=== PATIENT | male | born 1965 | race Caucasian/White ===

== ENCOUNTER 2017-05-10 18:51 | Inpatient (IN) | payer MEDICAID ==
[2017-05-10] MEDS ORDERED: ALBUTEROL SULFATE 0.083% NEB 2.5 MG/3 ML AMPUL NEB ONE (19:24)
--- NOTE | 2017-05-10 19:27 | ER Document Report ---
ED General - General Stated Complaint: SHORTNESS OF BREATH Time Seen by Provider: 05/10/17 19:19 Notes: Patient is a 52-year-old male with a past medical history of COPD, no baseline oxygen dependence, prior hospitalizations for COPD but no prior intubations or ICU admissions who presents with 3 days of progressively worsening shortness of breath became much worse this evening. Patient reports that he has been using his Spiriva as well as his albuterol inhalers without improvement of his symptoms. He does admit that he continues to smoke cigarettes. He has not seen his primary care doctor regarding today's concerns. He has not noted that anything seems to worsen his symptoms. He cannot recall the last time that his COPD was this severe. He denies any associated fever, chest pain, syncope, abdominal pain, vomiting or diarrhea. He does admit to ongoing feelings of severe shortness of breath at time of my initial assessment. TRAVEL OUTSIDE OF THE [place] IN LAST 30 DAYS: No COUNTRY TRAVELED TO/FROM: [place] - Related Data Allergies/Adverse Reactions: Cat/Feline Product Derivatives * [Cat/Feline Product Derivatives] Allergy ( Severe, Verified 05/10/17 19:43) Past Medical History - General Information source: Patient - Social History Smoking Status: Current Every Day Smoker Frequency of alcohol use: None Drug Abuse: None Lives with: Alone Family History: Reviewed & Not Pertinent - Past Medical History Cardiac Medical History: Reports: Hx Hypertension Denies: Hx Coronary Artery Disease, Hx Heart Attack Pulmonary Medical History: Reports: Hx Asthma, Hx Bronchitis, Hx COPD, Hx Pneumonia Denies: Hx Tuberculosis Neurological Medical History: Denies: Hx Cerebrovascular Accident, Hx Seizures Musculoskeltal Medical History: Reports Hx Arthritis Psychiatric Medical History: Reports: Hx Depression Traumatic Medical History: Reports: Hx Fractures - fingers, wrists, toes, arm Past Surgical History: Reports: Hx Bowel Surgery, Hx Oral Surgery. Denies: Hx Pacemaker - Immunizations Hx Diphtheria, Pertussis, Tetanus Vaccination: Yes - unknown Hx Pneumococcal Vaccination: 12/12/04 Review of Systems - Review of Systems Notes: Constitutional: Negative for fever. HENT: Negative for sore throat. Eyes: Negative for visual changes. Cardiovascular: Negative for chest pain. Respiratory: Positive for shortness of breath. Gastrointestinal: Negative for abdominal pain, vomiting or diarrhea. Genitourinary: Negative for dysuria. Musculoskeletal: Negative for back pain. Skin: Negative for rash. Neurological: Negative for headaches, weakness or numbness. 10 point ROS negative except as marked above and in HPI. Physical Exam - Vital signs Vitals: Pulse Ox 98 05/10/17 18:55 Interpretation: Tachycardic, Tachypneic Notes: PHYSICAL EXAMINATION: GENERAL: Appears in moderate distress, breathing between 40 and 50 times per minute on BiPAP HEAD: Atraumatic, normocephalic. EYES: Pupils equal round and reactive to light, extraocular movements intact, sclera anicteric, conjunctiva are normal. ENT: nares patent, oropharynx clear without exudates. Moderately dry mucous membranes. NECK: Normal range of motion, supple without lymphadenopathy LUNGS: Tight air movement in all lung bedoya. Prolonged expiratory phase with expiratory wheezing. Moderate respiratory distress with intercostal and supraclavicular retractions. HEART: Regular tachycardia without murmurs ABDOMEN: Soft, nontender, normoactive bowel sounds. No guarding, no rebound. No masses appreciated. EXTREMITIES: Normal range of motion, no pitting or edema. No cyanosis. NEUROLOGICAL: No focal neurological deficits. Moves all extremities spontaneously and on command. PSYCH: Normal mood, normal affect. SKIN: Warm, Dry, normal turgor, no rashes or lesions noted. Course - Re-evaluation Re-evalutation: 05/10/17 19:25 Patient presents by EMS in respiratory distress secondary to a COPD exacerbation. Patient is necessitating BiPAP at time of presentation. He has already received 125 mg Solu-Medrol, 2 g of magnesium, and 3 duo nebulizers prior to assessment. HI some evaluation the patient remains tachypneic with respiratory rates between 35 and 40 breaths per minute although he is able to speak in approximately 5-6 word sentences and reports that he feels dramatically improved on BiPAP and after the interventions provided by EMS. Chest x-ray and labs have been ordered. I do not see an obvious pneumonia on initial review of chest x-ray. Patient will continue on BiPAP at this time. Lung examination continue to show very tight air movement in all lung bedoya with expiratory wheezing in all bedoya. Will begin continuous in-line nebulizers on the BiPAP, IV fluids, ceftriaxone, and plan for hospitalization. However given patient's ongoing respiratory distress he will require frequent reassessments and is considered to be critically ill at this time. 05/10/17 20:17 On reassessment patient continues to have moderately increased work of breathing but much improved from my initial assessment on continuous nebulizers at this time. Current respiratory rate is 25-28 breaths per minute on BiPAP. He is able to now talking in complete sentences. Will discuss with hospitalist for hospitalization. - Vital Signs Vital signs: Temp Pulse Resp BP Pulse Ox 98.4 F 32 H 113/77 97 05/10/17 19:37 05/10/17 21:01 05/10/17 23:01 05/10/17 23:01 - Laboratory Result Diagrams: 05/10/17 19:09 05/10/17 19:09 Laboratory results interpreted by me: 05/10/17 05/10/17 05/10/17 19:09 19:09 19:09 WBC 14.5 H Hgb 13.2 L Band Neutrophils % 2 L Lymphocytes % (Manual) 4 L Monocytes % (Manual) 17 H Abs Neuts (Manual) 11.5 H Abs Monocytes (Manual) 2.5 H Sodium 136.9 L Chloride 91 L Carbon Dioxide 34 H Direct Bilirubin 0.5 H CK-MB (CK-2) 4.82 H - Diagnostic Test Radiology reviewed: Image reviewed, Reports reviewed Radiology results interpreted by me: 05/10/17 19:27 Chest x-ray: Likely atelectasis of the right base otherwise clear. Hyperinflated. - EKG Interpretation by Me Additional EKG results interpreted by me: 05/10/17 20:18 Sinus tachycardia. Rate 105. No ST elevations or depressions. QTC is 429. Critical Care Note - Critical Care Note Total time excluding time spent on procedures (mins): 37 Comments: Critical care time spent obtaining history from patient or surrogate, discussions with consultants, development of treatment plan with patient or surrogate, evaluation of patient's response to treatment, examination of patient , ordering and performing treatments and interventions, ordering and review of laboratory studies, re-evaluation of patient's condition, ordering and review of radiographic studies and review of old charts Discharge - Discharge Clinical Impression: Respiratory distress, COPD exacerbation Condition: Fair Disposition: ADMITTED INPATIENT Admitting Provider: [facility] Unit Admitted: [facility]
--- NOTE | 2017-05-10 19:28 | RADIOLOGY REPORT (SQ) ---
EXAM DESCRIPTION: CHEST SINGLE VIEW COMPLETED DATE/TIME: 05/10/2017 7:16 pm REASON FOR STUDY: SOB COMPARISON: 03/08/2016. NUMBER OF VIEWS: One view. TECHNIQUE: Single frontal radiographic view of the chest acquired. LIMITATIONS: None. FINDINGS: LUNGS AND PLEURA: No opacities, masses or pneumothorax. No pleural effusion. Attenuated bl ood vessels and flattened santos-diaphragms. MEDIASTINUM AND HILAR STRUCTURES: No masses. Contour normal. HEART AND VASCULAR STRUCTURES: Heart normal in size. Normal vasculature. BONES: Old right posterior rib fractures. HARDWARE: None in the chest. OTHER: No other significant finding. IMPRESSION: COPD. NO ACUTE RADIOGRAPHIC FINDING IN THE CHEST. TECHNICAL DOCUMENTATION: JOB ID: [id number] [employer]- All Rights Reserved
[2017-05-10 19:45] LABS: HEMATOCRIT 39.2 % (37.9-51.0); HEMOGLOBIN 13.2 g/dL (13.5-17.0); MEAN CORPUSCULAR HEMOGLOBIN 30.1 pg (27.0-33.4); MEAN CORPUSCULAR HGB CONC 33.5 g/dL (32.0-36.0); MEAN CORPUSCULAR VOLUME 90 fl (80-97); PLATELET COUNT 243 10^3/uL (150-450); RED BLOOD COUNT 4.37 10^6/uL (4.35-5.55); RED CELL DISTRIBUTION WIDTH 13.9 % (11.5-14.0); WHITE BLOOD COUNT 14.5 10^3/uL (4.0-10.5)
[2017-05-10 19:57] LABS: ABSOLUTE LYMPHOCYTES# (MANUAL) 0.6 10^3/uL (0.5-4.7); ABSOLUTE MONOCYTES # (MANUAL) 2.5 10^3/uL (0.1-1.4); ABSOLUTE NEUTROPHILS# (MANUAL) 11.5 10^3/uL (1.7-8.2); ALANINE AMINOTRANSFERASE 39 U/L (21-72); ALBUMIN 3.8 g/dL (3.5-5.0); ALKALINE PHOSPHATASE 103 U/L (38-126); ANION GAP 12 (5-19); ASPARTATE AMINO TRANSFERASE 32 U/L (17-59); BAND NEUTROPHILS % (MANUAL) 2 % (3-5); BASOPHILS % (MANUAL) 0 % (0-2); BILIRUBIN,DIRECT 0.5 mg/dL (0.0-0.4); BLOOD UREA NITROGEN 17 mg/dL (7-20); CALCIUM 9.2 mg/dL (8.4-10.2); CARBON DIOXIDE 34 mmol/L (22-30); CHLORIDE 91 mmol/L (98-107); CREATINE KINASE 170 U/L (55-170); EOSINOPHILS % (MANUAL) 0 % (0-6); GLUCOSE 108 mg/dL (75-110); LYMPHOCYTES % (MANUAL) 4 % (13-45); MONOCYTES % (MANUAL) 17 % (3-13); SEGMENTED NEUTROPHILS % (MAN) 77 % (42-78); SODIUM 136.9 mmol/L (137-145); TOTAL CELLS COUNTED 100; TOTAL PROTEIN 6.4 g/dL (6.3-8.2)
[2017-05-10 19:59] LABS: ANISOCYTOSIS SLIGHT; PLATELET COMMENT ADEQUATE; PLATELET LARGE PRESENT; POLYCHROMASIA SLIGHT; SMUDGE CELLS PRESENT; TOXIC VACUOLATION PRESENT
[2017-05-10 20:09] LABS: CREATINE KINASE MB 4.82 ng/mL (<4.55); TROPONIN I < 0.012 ng/mL
[2017-05-10] MEDS ORDERED: CEFTRIAXONE 1 GM/D5W RTU 1 GM/50 ML RTUPB IV ONE (20:17)
[2017-05-10] MEDS ORDERED: KETOROLAC TROMETHAMINE INJ/PF 30 MG/1 ML SDV IV ONE (20:17)
[2017-05-10] MEDS ORDERED: LIDOCAINE 5% (700 MG) TRANSDERMAL ADH..PATCH TP ONE (20:17)
[2017-05-10] MEDS ORDERED: LEVALBUTEROL HCL NEB 1.25 MG/3 ML AMPUL NEB PRN (20:30)
[2017-05-10] MEDS ORDERED: ACETAMINOPHEN 325 MG TABLET PO PRN (20:30)
[2017-05-10] MEDS ORDERED: NORMAL SALINE 1000 ML 1,000 ML IV ONE (20:43)
[2017-05-10] MEDS ORDERED: NICOTINE 7 MG/24 HR PATCH.TD24 TD PRN (20:46)
[2017-05-10] MEDS ORDERED: KETOROLAC TROMETHAMINE INJ/PF 30 MG/1 ML SDV IV PRN (20:47)
[2017-05-10] MEDS ORDERED: BENZONATATE 100 MG CAPSULE PO PRN (20:48)
[2017-05-10] MEDS ORDERED: METHYLPREDNISOLONE INJ 125 MG/2 ML SDV IV ONE (21:00)
--- NOTE | 2017-05-10 21:04 | PDOC H&P ---
History of Present Illness Admission Date/PCP: 05/10/17 20:29 History of Present Illness: MAXIMILIAN COKER is a 52 year old male with a PMH of OA, COPD, HTN who presents to the emergency department with complaints of shortness of breath. Patient reports that for the last several weeks he has been coughing up green sputum. He reports that he has been increased shortness of breath and wheezing over the past several days. He reports subjective fevers and chills as well as nausea. And reports a crampy right-sided chest pain particularly with coughing. Patient has received IV Solu-Medrol, 2 g magnesium, and 3 duo nebs from EMS and was requiring 40% BiPAP in the emergency department received an additional 3 albuterol treatments and is continuing to require BiPAP for support. Is referred to the hospital service for COPD exacerbation. Patient's medications are currently undergoing reconciliation. Current list is automatically generated by [employer] and does not reflect an accurate description of his medications. Due to the urgent/emergent nature of his condition, he is admitted without a full list. Past Medical History Cardiac Medical History: Reports: Hypertension Denies: Coronary Artery Disease, Myocardial Infarction Pulmonary Medical History: Reports: Bronchitis, Chronic Obstructive Pulmonary Disease (COPD), Pneumonia Denies: Tuberculosis Neurological Medical History: Denies: Seizures Musculoskeltal Medical History: Reports: Arthritis Psychiatric Medical History: Reports: Depression Hematology: Denies: Anemia Past Surgical History Past Surgical History: Reports: None Denies: Pacemaker Social History Smoking Status: Current Every Day Smoker Cigarettes Packs Per Day: 0.5 Frequency of Alcohol Use: None Hx Recreational Drug Use: Yes Drugs: Cocaine, Marijuana Hx Prescription Drug Abuse: Yes - patient denied, see past admission - Advance Directive Resuscitation Status: Full Code Surrogate healthcare decision maker:: Deangelo Coker, comfort Family History Family History: CAD, Malignancy Parental Family History Reviewed: Yes Children Family History Reviewed: Yes Sibling(s) Family History Reviewed.: Yes Medication/Allergy Home Medications: Albuterol 90 mcg NEB Q4H PRN 04/14/11 Fluticasone/Salmeterol [Advair 100-50 Diskus 28 Dose] 1 puff IH Q12 04/14/11 Tiotropium [place] [Spiriva Handihaler 18 mcg/dose (30 Dose)] 18 mcg IH DAILY Albuterol Sulfate [Proair HFA] 2 puff IH Q6 03/09/16 Fluticasone Propionate [Flonase Nasal Bagley 50 Mcg/Bagley 16 gm] 2 spray NASL Q12 #1 spray.pump 03/09/16 Gabapentin [Neurontin 300 mg Capsule] 300 mg PO TID 03/09/16 Levofloxacin [Levaquin 500 mg Tablet] 500 mg PO DAILY #7 tablet 03/09/16 Montelukast Sodium [Singulair 10 mg Tablet] 10 mg PO QHS #30 tablet 03/09/16 Oxycodone HCl 20 mg PO QID 03/09/16 Allergies/Adverse Reactions: Cat/Feline Product Derivatives * [Cat/Feline Product Derivatives] Allergy ( Severe, Verified 05/10/17 19:43) Review of Systems Constitutional: PRESENT: anorexia, chills, fatigue, fever(s). ABSENT: headache( s), weight gain, weight loss Eyes: ABSENT: visual disturbances Ears: ABSENT: hearing changes Cardiovascular: PRESENT: chest pain. ABSENT: dyspnea on exertion, edema, orthropnea, palpitations Respiratory: PRESENT: cough, dyspnea, sputum. ABSENT: hemoptysis Gastrointestinal: PRESENT: nausea. ABSENT: abdominal pain, constipation, diarrhea, hematemesis, hematochezia, melena, vomiting Genitourinary: ABSENT: dysuria, hematuria Musculoskeletal: ABSENT: joint swelling Integumentary: ABSENT: rash, wounds Neurological: ABSENT: abnormal gait, abnormal speech, confusion, dizziness, focal weakness, syncope Psychiatric: ABSENT: anxiety, depression, homidical ideation, suicidal ideation Endocrine: ABSENT: cold intolerance, heat intolerance, polydipsia, polyuria Hematologic/Lymphatic: ABSENT: easy bleeding, easy bruising Physical Exam Vital Signs: Temp Pulse Resp BP Pulse Ox 98.4 F 33 H 139/94 H 98 05/10/17 19:37 05/10/17 19:50 05/10/17 19:37 05/10/17 19:50 General appearance: PRESENT: well-developed, well-nourished, other - moderate distress Head exam: PRESENT: atraumatic, normocephalic Eye exam: PRESENT: conjunctiva pink, EOMI, PERRLA. ABSENT: conjunctival injection, scleral icterus Ear exam: PRESENT: normal external ear exam Mouth exam: PRESENT: dry mucosa, tongue midline Neck exam: ABSENT: JVD, lymphadenopathy, thyromegaly, tracheal deviation Respiratory exam: PRESENT: accessory muscle use, chest wall tenderness, prolonged expiratory phas, symmetrical, tachypnea, wheezes. ABSENT: rales, rhonchi, unlabored Cardiovascular exam: PRESENT: RRR, +S1, +S2, tachycardia. ABSENT: diastolic murmur, rubs, systolic murmur Pulses: PRESENT: normal dorsalis pedis pul Vascular exam: PRESENT: normal capillary refill GI/Abdominal exam: PRESENT: normal bowel sounds, soft. ABSENT: distended, firm , guarding, mass, organolmegaly, rebound, rigid, tenderness Rectal exam: PRESENT: deferred Extremities exam: PRESENT: full ROM. ABSENT: calf tenderness, clubbing, pedal edema Neurological exam: PRESENT: alert, awake, oriented to person, oriented to place , oriented to time, oriented to situation, CN II-XII grossly intact. ABSENT: motor sensory deficit Psychiatric exam: PRESENT: appropriate affect, normal mood. ABSENT: homicidal ideation, suicidal ideation Skin exam: PRESENT: dry, intact, warm. ABSENT: cyanosis, rash Results Laboratory Results: 05/10/17 05/10/17 05/10/17 19:09 19:09 19:09 WBC 14.5 H Hgb 13.2 L Hct 39.2 Plt Count 243 Sodium 136.9 L Potassium 4.0 Chloride 91 L Carbon Dioxide 34 H Anion Gap 12 BUN 17 Creatinine 0.89 Glucose 108 Calcium 9.2 Total Bilirubin 1.0 Direct Bilirubin 0.5 H AST 32 ALT 39 Alkaline Phosphatase 103 Creatine Kinase 170 CK-MB (CK-2) 4.82 H Troponin I < 0.012 Total Protein 6.4 Albumin 3.8 Impressions: Chest X-Ray 05/10/17 19:07 IMPRESSION: COPD. NO ACUTE RADIOGRAPHIC FINDING IN THE CHEST. Assessment & Plan - Diagnosis (1) COPD exacerbation Is this a current diagnosis for this admission?: Yes Plan: Place patient on scheduled nebulized treatments and re-evaluate for improvement. PRN Xopenex Place patient on IV Solu-Medrol Obtain sputum culture Encourage smoking cessation At this time, have concerned for possible bacterial pneumonia in light of patient's reported purulent sputum. Will initiate patient on Levaquin. (2) Acute hypoxemic respiratory failure Is this a current diagnosis for this admission?: Yes Plan: Oxygen as needed to maintain saturation between 9094% BiPAP currently and will continue this. (3) HTN (hypertension) Qualifiers: Hypertension type: essential hypertension Qualified Code(s): I10 - Essential (primary) hypertension Is this a current diagnosis for this admission?: Yes Plan: Will resume lisinopril (4) Acute hyponatremia Is this a current diagnosis for this admission?: Yes Plan: Patient is mildly acutely hyponatremic likely secondary to intravascular volume depletion. (5) Tobacco abuse Is this a current diagnosis for this admission?: Yes Plan: Patient is advised to stop using tobacco. Nicotine patch as needed - Time Time Spent: 30 to 50 Minutes Medications reviewed and adjusted accordingly: Yes Anticipated discharge: Home Within: Other - Upon improvement of patient's symptomatology - Inpatient Certification Based on my medical assessment, after consideration of the patient's comorbidities, presenting symptoms, or acuity I expect that the services needed warrant INPATIENT care.: Yes I certify that my determination is in accordance with my understanding of Medicare's requirements for reasonable and necessary INPATIENT services [42 CFR 412.3e].: Yes Medical Necessity: Need For IV Fluids, Need for Nebulizer Therapy and Monitoring of Response, Need for IV Antibiotics Post Hospital Care: D/C Road [employer] Documentation
[2017-05-10] MEDS: GUAIFENESIN 600 MG TABLET.SA PO SCH (21:30)
[2017-05-10] MEDS: FAMOTIDINE 20 MG TABLET PO SCH (21:30)
[2017-05-10] MEDS: MONTELUKAST SODIUM 10 MG TABLET PO SCH (21:31)
[2017-05-10] MEDS: LEVOFLOXACIN 750 MG/D5W RTU 750 MG/150 ML RTUPB IV SCH (21:31)
[2017-05-11] MEDS: IPRATROPIUM/ALBUTEROL 0.5-2.5 MG/3 ML AMPUL NEB SCH ×4 (02:30→21:29)
[2017-05-11] MEDS ORDERED: INFLUENZA ADLT QUAD (36MOS+) 2017-18 VAC 0.5 ML SYR IM PRN (05:33)
[2017-05-11] MEDS: METHYLPREDNISOLONE INJ 125 MG/2 ML SDV IV SCH ×3 (06:32→22:58)
[2017-05-11] MEDS: NORMAL SALINE 1000 ML 1,000 ML IV PRN ×2 (06:32→22:59)
[2017-05-11 07:28] LABS: HEMATOCRIT 37.4 % (37.9-51.0); HEMOGLOBIN 12.7 g/dL (13.5-17.0); MEAN CORPUSCULAR HGB CONC 34.1 g/dL (32.0-36.0); MEAN CORPUSCULAR VOLUME 91 fl (80-97); PLATELET COUNT 198 10^3/uL (150-450); RED BLOOD COUNT 4.12 10^6/uL (4.35-5.55); RED CELL DISTRIBUTION WIDTH 13.9 % (11.5-14.0); WHITE BLOOD COUNT 10.5 10^3/uL (4.0-10.5)
[2017-05-11 07:50] LABS: ANION GAP 9 (5-19); BLOOD UREA NITROGEN 21 mg/dL (7-20); CARBON DIOXIDE 36 mmol/L (22-30); CHLORIDE 98 mmol/L (98-107); GLUCOSE 133 mg/dL (75-110); POTASSIUM 4.5 mmol/L (3.6-5.0); SODIUM 143.3 mmol/L (137-145)
--- NOTE | 2017-05-11 09:39 | EKG REPORT ---
SEVERITY:- BORDERLINE ECG - SINUS TACHYCARDIA CONSIDER RIGHT VENTRICULAR HYPERTROPHY : Confirmed by: Valentin Gaaln 11-May-2017 09:38:38
[2017-05-11] MEDS: ENOXAPARIN SODIUM INJ 40 MG/0.4 ML DISP.SYRIN SUBCUT SCH (09:53)
[2017-05-11] MEDS: FAMOTIDINE 20 MG TABLET PO SCH ×2 (09:54→22:58)
[2017-05-11] MEDS: LISINOPRIL 5 MG TABLET PO SCH (09:54)
[2017-05-11] MEDS: GUAIFENESIN 600 MG TABLET.SA PO SCH ×2 (09:54→22:58)
[2017-05-11] MEDS ORDERED: CYCLOBENZAPRINE HCL 10 MG TABLET PO PRN (10:29)
[2017-05-11] MEDS: TRAMADOL HCL 50 MG TABLET PO PRN (12:40)
--- NOTE | 2017-05-11 13:05 | Physician Advisory Note ---
Physician Advisor ProgressNote .: [facility] medical [facility] for this patient. Physician Advisor Statement: Nice documentation of pt's labored breathing/accessory muscle use/distress, need for Bipap, which supports dx of Ac Resp Failure, & acute hyponatremia.. Please consider documenting, if you agree: 1. "Initial O2 sat 88% per EMS, while on O2" (per triage note) - to support dx Ac Resp Failure 2. ? - A. "Acute bronchitis" OR B. "Possible pneumonia, suspect gram-___ type, despite negative CXR, evidenced by " - if this is ruled out, please state that. 3. Medical necessity: "AFter 1 night of hospital care, pt still tachycardic, still requiring O2 to maintain O2 sat in 90s, still using accessory muscles to breathe. Not sufficiently stabilized for safe d/c." Status: Medicaid pt, appropriate for Inpatient status. CK
--- NOTE | 2017-05-11 16:05 | PDOC PROGRESS REPORT ---
Subjective Progress Note for:: 05/11/17 Subjective:: Patient is seen on morning rounds. He is currently on supplemental oxygen via nasal cannula at 5 L/min he does appear to be tachypneic with accessory muscle use. He is encouraged to resume his BiPAP, however, the patient states that he does not feel comfortable wearing the device but to resuming BiPAP at this time. His primary complaint today is his generalized arthritic pain, especially to his bilateral knees and right hip. He states that he previously was on opiate medications for these but has been off of those for greater than a year and generally treat his pain with Tylenol or aspirin. He does ask that I provide something stronger for him if that is a possibility. Otherwise, he has no other questions or concerns at this time. Reason For Visit: COPD EXACERBATION, ACUTE HYPOXEMIC RESPIRATORY Physical Exam Vital Signs: Temp Pulse Resp BP Pulse Ox 97.9 F 92 20 123/67 94 05/11/17 12:33 05/11/17 14:00 05/11/17 13:55 05/11/17 12:33 05/11/17 13:55 Intake & Output 05/10/17 05/11/17 05/12/17 06:59 06:59 06:59 Intake Total 210 Balance 210 Weight 58.4 kg General appearance: PRESENT: disheveled, mild distress, thin, well-developed, well-nourished Head exam: PRESENT: atraumatic, normocephalic Eye exam: PRESENT: conjunctiva pink, EOMI, PERRLA. ABSENT: scleral icterus Ear exam: PRESENT: normal external ear exam Mouth exam: PRESENT: moist, tongue midline Neck exam: ABSENT: carotid bruit, JVD, lymphadenopathy, thyromegaly Respiratory exam: PRESENT: accessory muscle use, prolonged expiratory phas, rhonchi, symmetrical, tachypnea, unlabored. ABSENT: rales, wheezes Cardiovascular exam: PRESENT: RRR, +S1, +S2. ABSENT: diastolic murmur, rubs, systolic murmur Pulses: PRESENT: normal dorsalis pedis pul Vascular exam: PRESENT: normal capillary refill GI/Abdominal exam: PRESENT: normal bowel sounds, soft. ABSENT: distended, guarding, mass, organolmegaly, rebound, tenderness Rectal exam: PRESENT: deferred Extremities exam: PRESENT: full ROM. ABSENT: calf tenderness, clubbing, pedal edema Neurological exam: PRESENT: alert, awake, oriented to person, oriented to place , oriented to time, oriented to situation, CN II-XII grossly intact. ABSENT: motor sensory deficit Psychiatric exam: PRESENT: appropriate affect, normal mood. ABSENT: homicidal ideation, suicidal ideation Skin exam: PRESENT: dry, intact, warm. ABSENT: cyanosis, rash Results Laboratory Results: 05/11/17 06:48 05/11/17 06:48 05/11/17 05/11/17 06:48 06:48 WBC 10.5 RBC 4.12 L Hgb 12.7 L Hct 37.4 L MCV 91 MCH 31.0 MCHC 34.1 RDW 13.9 Plt Count 198 Sodium 143.3 Potassium 4.5 Chloride 98 Carbon Dioxide 36 H Anion Gap 9 BUN 21 H Creatinine 0.97 Est GFR ( Amer) > 60 Est GFR (Non-Af Amer) > 60 Glucose 133 H Calcium 9.0 05/11/17 05/11/17 01:06 06:48 Troponin I < 0.012 < 0.012 Impressions: Chest X-Ray 05/10/17 19:07 IMPRESSION: COPD. NO ACUTE RADIOGRAPHIC FINDING IN THE CHEST. Assessment & Plan - Diagnosis (1) COPD exacerbation Is this a current diagnosis for this admission?: Yes Plan: The patient is admitted with a COPD exacerbation. Blood cultures: Pending. Patient is provided supplemental oxygen as needed via nasal cannula and does have BiPAP available nightly and as needed. He is provided IV Solu-Medrol every 8 hours, scheduled DuoNeb nebulizer treatments with as needed Xopenex. He is also provided Mucinex twice daily, Singulair daily, and Tessalon Perles as needed. (2) Acute hypoxemic respiratory failure Is this a current diagnosis for this admission?: Yes Plan: The patient was admitted for acute on chronic respiratory failure with hypoxemia secondary to his COPD exacerbation. Initial O2 saturations by EMS were 82% while on supplemental oxygen. He continues to tachypneic with accessory muscle use and requires supplemental oxygen. Plan as above. (3) Acute hyponatremia Is this a current diagnosis for this admission?: Yes Plan: Resolved. The patient was admitted with mild hyponatremia secondary to intravascular volume depletion. (4) HTN (hypertension) Qualifiers: Hypertension type: essential hypertension Qualified Code(s): I10 - Essential (primary) hypertension Is this a current diagnosis for this admission?: Yes Plan: Improved; will continue lisinopril. (5) Tobacco abuse Is this a current diagnosis for this admission?: Yes Plan: Smoking cessation is encouraged. Nicotine replacement therapy has been offered. - Time Time Spent with patient: 25-34 minutes Smoking Cessation Education: 3 to 10 minutes Medications reviewed and adjusted accordingly: Yes
[2017-05-11] MEDS: MONTELUKAST SODIUM 10 MG TABLET PO SCH (22:58)
[2017-05-11] MEDS: LEVOFLOXACIN 750 MG/D5W RTU 750 MG/150 ML RTUPB IV SCH (22:59)
[2017-05-12] MEDS: IPRATROPIUM/ALBUTEROL 0.5-2.5 MG/3 ML AMPUL NEB SCH ×4 (02:58→20:50)
[2017-05-12 04:50] LABS: URINE AMPHETAMINES SCREEN NEGATIVE; URINE BARBITURATES SCREEN NEGATIVE; URINE BENZODIAZEPINES SCREEN NEGATIVE; URINE METHADONE SCREEN NEGATIVE; URINE PHENCYCLIDINE SCREEN NEGATIVE
[2017-05-12 04:52] LABS: URINE COCAINE SCREEN UNCONFIRMED POSITIVE; URINE MARIJUANA (THC) SCREEN UNCONFIRMED POSITIVE
[2017-05-12] MEDS: METHYLPREDNISOLONE INJ 125 MG/2 ML SDV IV SCH ×3 (05:55→21:31)
[2017-05-12 06:43] LABS: HEMATOCRIT 33.6 % (37.9-51.0); HEMOGLOBIN 11.2 g/dL (13.5-17.0); MEAN CORPUSCULAR HEMOGLOBIN 30.5 pg (27.0-33.4); MEAN CORPUSCULAR HGB CONC 33.2 g/dL (32.0-36.0); MEAN CORPUSCULAR VOLUME 92 fl (80-97); PLATELET COUNT 220 10^3/uL (150-450); RED BLOOD COUNT 3.66 10^6/uL (4.35-5.55); RED CELL DISTRIBUTION WIDTH 14.2 % (11.5-14.0); WHITE BLOOD COUNT 14.8 10^3/uL (4.0-10.5)
[2017-05-12 07:03] LABS: ANION GAP 10 (5-19); BLOOD UREA NITROGEN 24 mg/dL (7-20); CALCIUM 8.7 mg/dL (8.4-10.2); CARBON DIOXIDE 31 mmol/L (22-30); CHLORIDE 103 mmol/L (98-107); GLUCOSE 152 mg/dL (75-110); POTASSIUM 4.3 mmol/L (3.6-5.0); SODIUM 143.9 mmol/L (137-145)
[2017-05-12] MEDS: TRAMADOL HCL 50 MG TABLET PO PRN (11:36)
[2017-05-12] MEDS: ENOXAPARIN SODIUM INJ 40 MG/0.4 ML DISP.SYRIN SUBCUT SCH (11:36)
[2017-05-12] MEDS: FAMOTIDINE 20 MG TABLET PO SCH ×2 (11:37→21:33)
[2017-05-12] MEDS: LISINOPRIL 5 MG TABLET PO SCH (11:37)
[2017-05-12] MEDS: GUAIFENESIN 600 MG TABLET.SA PO SCH ×2 (11:38→21:32)
[2017-05-12] MEDS: NORMAL SALINE 1000 ML 1,000 ML IV PRN (11:38)
--- NOTE | 2017-05-12 16:36 | PDOC PROGRESS REPORT ---
Subjective Progress Note for:: 05/12/17 Subjective:: Patient is seen on morning rounds. He is currently on supplemental oxygen via nasal cannula at 5 L/min. He continues to appear to be tachypneic with accessory muscle use. He is encouraged to resume his BiPAP, however, the patient states that he does not feel comfortable wearing the device. He again reports generalized arthritic pain, especially to his bilateral knees, right hip, and lower back. He also complains of mid-back and chest pain r/t coughing. He states that he previously was on opiate medications for these but has been off of those for greater than a year and generally treats his pain with Tylenol or aspirin. He states that the tramadol provided overnight "didn' t put a scratch in it" and requests a stronger medication. Otherwise, he has no other questions or concerns at this time. Reason For Visit: COPD EXACERBATION, ACUTE HYPOXEMIC RESPIRATORY Physical Exam Vital Signs: Temp Pulse Resp BP Pulse Ox 98.0 F 95 16 122/59 L 94 05/12/17 12:24 05/12/17 14:32 05/12/17 14:32 05/12/17 12:24 05/12/17 14:32 Intake & Output 05/11/17 05/12/17 05/13/17 06:59 06:59 06:59 Intake Total 210 5732 Output Total 1200 Balance 210 4532 Weight 58.4 kg 61.4 kg General appearance: PRESENT: no acute distress, thin, well-developed, well- nourished Head exam: PRESENT: atraumatic, normocephalic Eye exam: PRESENT: conjunctiva pink, EOMI, PERRLA. ABSENT: scleral icterus Ear exam: PRESENT: normal external ear exam Mouth exam: PRESENT: moist, tongue midline Neck exam: ABSENT: carotid bruit, JVD, lymphadenopathy, thyromegaly Respiratory exam: PRESENT: accessory muscle use, clear to auscultation julienne, rhonchi, symmetrical, tachypnea, wheezes. ABSENT: rales Cardiovascular exam: PRESENT: RRR, +S1, +S2. ABSENT: diastolic murmur, rubs, systolic murmur Pulses: PRESENT: normal dorsalis pedis pul Vascular exam: PRESENT: normal capillary refill GI/Abdominal exam: PRESENT: normal bowel sounds, soft. ABSENT: distended, guarding, mass, organolmegaly, rebound, tenderness Rectal exam: PRESENT: deferred Extremities exam: PRESENT: full ROM. ABSENT: calf tenderness, clubbing, pedal edema Neurological exam: PRESENT: alert, awake, oriented to person, oriented to place , oriented to time, oriented to situation, CN II-XII grossly intact. ABSENT: motor sensory deficit Psychiatric exam: PRESENT: appropriate affect, normal mood. ABSENT: homicidal ideation, suicidal ideation Skin exam: PRESENT: dry, intact, warm. ABSENT: cyanosis, rash Results Laboratory Results: 05/12/17 06:13 05/12/17 06:13 05/12/17 05/12/17 06:13 06:13 WBC 14.8 H RBC 3.66 L Hgb 11.2 L Hct 33.6 L MCV 92 MCH 30.5 MCHC 33.2 RDW 14.2 H Plt Count 220 Sodium 143.9 Potassium 4.3 Chloride 103 Carbon Dioxide 31 H Anion Gap 10 BUN 24 H Creatinine 0.87 Est GFR ( Amer) > 60 Est GFR (Non-Af Amer) > 60 Glucose 152 H Calcium 8.7 05/11/17 05/11/17 01:06 06:48 Troponin I < 0.012 < 0.012 Impressions: Chest X-Ray 05/10/17 19:07 IMPRESSION: COPD. NO ACUTE RADIOGRAPHIC FINDING IN THE CHEST. Assessment & Plan - Diagnosis (1) COPD exacerbation Is this a current diagnosis for this admission?: Yes Plan: The patient is admitted with a COPD exacerbation. Blood cultures: No growth at 24 hours Sputum culture is pending Patient is provided supplemental oxygen as needed via nasal cannula and does have BiPAP available nightly and as needed. He is provided IV Solu-Medrol every 8 hours, scheduled DuoNeb nebulizer treatments with as needed Xopenex. He is also provided Mucinex twice daily, Singulair daily, and Tessalon Perles as needed. (2) Acute hypoxemic respiratory failure Is this a current diagnosis for this admission?: Yes Plan: Improved. The patient was admitted for acute on chronic respiratory failure with hypoxemia secondary to his COPD exacerbation. Initial O2 saturations by EMS were 82% while on supplemental oxygen. He continues to tachypneic with accessory muscle use and requires supplemental oxygen, though is now maintaining oxygen saturations on nasal cannula. Plan as above. (3) HTN (hypertension) Qualifiers: Hypertension type: essential hypertension Qualified Code(s): I10 - Essential (primary) hypertension Is this a current diagnosis for this admission?: Yes Plan: Improved; will continue lisinopril. (4) Tobacco abuse Is this a current diagnosis for this admission?: Yes Plan: Smoking cessation is encouraged. Nicotine replacement therapy has been offered. (5) Acute hyponatremia Is this a current diagnosis for this admission?: Yes Plan: Resolved. The patient was admitted with mild hyponatremia secondary to intravascular volume depletion. (6) Chronic pain Is this a current diagnosis for this admission?: Yes Plan: We will schedule daily lidocaine patch may use Tylenol and oxycodone as needed. Encouraged nonpharmacological intervention such as movement, stretching and heat therapy. - Time Time Spent with patient: 15-24 minutes Medications reviewed and adjusted accordingly: Yes
[2017-05-12] MEDS: OXYCODONE HCL IR 5 MG TABLET PO PRN (21:32)
[2017-05-12] MEDS: LEVOFLOXACIN 750 MG/D5W RTU 750 MG/150 ML RTUPB IV SCH (21:32)
[2017-05-12] MEDS: MONTELUKAST SODIUM 10 MG TABLET PO SCH (21:33)
[2017-05-13] MEDS: IPRATROPIUM/ALBUTEROL 0.5-2.5 MG/3 ML AMPUL NEB SCH ×4 (02:15→20:31)
[2017-05-13] MEDS: OXYCODONE HCL IR 5 MG TABLET PO PRN (06:35)
[2017-05-13] MEDS: METHYLPREDNISOLONE INJ 125 MG/2 ML SDV IV SCH ×2 (06:37→15:09)
[2017-05-13 07:32] LABS: HEMATOCRIT 31.5 % (37.9-51.0); HEMOGLOBIN 10.3 g/dL (13.5-17.0); MEAN CORPUSCULAR HGB CONC 32.8 g/dL (32.0-36.0); MEAN CORPUSCULAR VOLUME 91 fl (80-97); PLATELET COUNT 240 10^3/uL (150-450); RED BLOOD COUNT 3.44 10^6/uL (4.35-5.55); RED CELL DISTRIBUTION WIDTH 14.3 % (11.5-14.0); WHITE BLOOD COUNT 13.8 10^3/uL (4.0-10.5)
[2017-05-13 07:48] LABS: ANION GAP 5 (5-19); BLOOD UREA NITROGEN 19 mg/dL (7-20); CALCIUM 8.2 mg/dL (8.4-10.2); CARBON DIOXIDE 38 mmol/L (22-30); CHLORIDE 99 mmol/L (98-107); GLUCOSE 144 mg/dL (75-110); POTASSIUM 4.1 mmol/L (3.6-5.0); SODIUM 142.2 mmol/L (137-145)
[2017-05-13] MEDS: ENOXAPARIN SODIUM INJ 40 MG/0.4 ML DISP.SYRIN SUBCUT SCH (09:34)
[2017-05-13] MEDS: FAMOTIDINE 20 MG TABLET PO SCH ×2 (09:34→22:08)
[2017-05-13] MEDS: LISINOPRIL 5 MG TABLET PO SCH (09:34)
[2017-05-13] MEDS: GUAIFENESIN 600 MG TABLET.SA PO SCH ×2 (09:34→22:08)
[2017-05-13] MEDS: LIDOCAINE 5% (700 MG) TRANSDERMAL ADH..PATCH TP SCH (09:35)
[2017-05-13] MEDS ORDERED: HALOPERIDOL LACTATE INJ 5 MG/1 ML VIAL IV ONE (13:51)
[2017-05-13] MEDS ORDERED: LEVALBUTEROL HCL NEB 1.25 MG/3 ML AMPUL NEB ONE (13:51)
[2017-05-13] MEDS ORDERED: OXYCODONE HCL IR 5 MG TABLET PO PRN (14:08)
[2017-05-13 14:48] LABS: ARTERIAL BLOOD H2CO3 1.64 mmol/L (1.05-1.35); ARTERIAL BLOOD HCO3 37.7 mmol/L (20-26); ARTERIAL BLOOD O2 SATURATION 96.1 % (94-98); ARTERIAL BLOOD PCO2 54.4 mmHg (35-45); ARTERIAL BLOOD PH 7.46 (7.35-7.45); ARTERIAL BLOOD PO2 79.5 mmHg (80-100); ARTERIAL BLOOD TOTAL CO2 39.4 mmol/L (23-27)
[2017-05-13 14:49] LABS: ARTERIAL BLOOD FIO2 4L
[2017-05-13] MEDS ORDERED: METHYLPREDNISOLONE INJ 125 MG/2 ML SDV IV SCH (16:01)
--- NOTE | 2017-05-13 16:07 | PDOC PROGRESS REPORT ---
Subjective Progress Note for:: 05/13/17 Subjective:: Patient is seen on rounds for follow up of COPD exacerbation. He is currently on supplemental oxygen via nasal cannula at 4 L/min. He continues to appear to be tachypneic with accessory muscle use and retractions. He did not use BiPAP overnight, as unfortunately there were none available in the building. I have contacted respiratory and they have been able to obtain one for him to begin using now. He again reports generalized arthritic pain, especially to his bilateral knees, right hip, and lower back. He also complains of mid-back and chest pain r/t coughing and breathing he describes this as "muscle aching." He reports that he is beginning to tire and is concerned about what "the next steps are." He does confirm that he would wish to be intubated if his respiratory status further deteriorated. "I want you to do whatever it takes for me to get home to my [facility]." Reason For Visit: COPD EXACERBATION, ACUTE HYPOXEMIC RESPIRATORY Physical Exam Vital Signs: Temp Pulse Resp BP Pulse Ox 97.4 F 89 18 127/77 H 94 05/13/17 07:49 05/13/17 08:53 05/13/17 08:53 05/13/17 07:49 05/13/17 08:53 Intake & Output 05/12/17 05/13/17 05/14/17 06:59 06:59 06:59 Intake Total 5732 4205 Output Total 1200 Balance 4532 4205 Weight 61.4 kg 62.4 kg General appearance: PRESENT: no acute distress, thin, well-developed, well- nourished Head exam: PRESENT: atraumatic, normocephalic Eye exam: PRESENT: conjunctiva pink, EOMI, PERRLA. ABSENT: scleral icterus Ear exam: PRESENT: normal external ear exam Mouth exam: PRESENT: moist, tongue midline Neck exam: ABSENT: carotid bruit, JVD, lymphadenopathy, thyromegaly Respiratory exam: PRESENT: accessory muscle use, chest wall tenderness, decreased breath sounds, prolonged expiratory phas, retraction, rhonchi, tachypnea. ABSENT: rales, unlabored, wheezes Cardiovascular exam: PRESENT: RRR, +S1, +S2, tachycardia. ABSENT: diastolic murmur, rubs, systolic murmur Pulses: PRESENT: normal dorsalis pedis pul Vascular exam: PRESENT: normal capillary refill GI/Abdominal exam: PRESENT: normal bowel sounds, soft. ABSENT: distended, guarding, mass, organolmegaly, rebound, tenderness Rectal exam: PRESENT: deferred Extremities exam: PRESENT: full ROM. ABSENT: calf tenderness, clubbing, pedal edema Neurological exam: PRESENT: alert, awake, oriented to person, oriented to place , oriented to time, oriented to situation, CN II-XII grossly intact. ABSENT: motor sensory deficit Psychiatric exam: PRESENT: appropriate affect, normal mood. ABSENT: homicidal ideation, suicidal ideation Skin exam: PRESENT: dry, intact, warm. ABSENT: cyanosis, rash Results Laboratory Results: 05/13/17 06:19 05/13/17 06:19 05/13/17 05/13/17 05/13/17 06:19 06:19 14:25 WBC 13.8 H RBC 3.44 L Hgb 10.3 L Hct 31.5 L MCV 91 MCH 30.0 MCHC 32.8 RDW 14.3 H Plt Count 240 Carbonic Acid 1.64 H HCO3/H2CO3 Ratio 22:1 ABG pH 7.46 H ABG pCO2 54.4 H ABG pO2 79.5 L ABG HCO3 37.7 H ABG O2 Saturation 96.1 ABG Base Excess 12.0 FiO2 4L Sodium 142.2 Potassium 4.1 Chloride 99 Carbon Dioxide 38 H Anion Gap 5 BUN 19 Creatinine 0.79 Est GFR ( Amer) > 60 Est GFR (Non-Af Amer) > 60 Glucose 144 H Calcium 8.2 L 05/11/17 05/11/17 01:06 06:48 Troponin I < 0.012 < 0.012 Impressions: Chest X-Ray 05/10/17 19:07 IMPRESSION: COPD. NO ACUTE RADIOGRAPHIC FINDING IN THE CHEST. Assessment & Plan - Diagnosis (1) COPD exacerbation Is this a current diagnosis for this admission?: Yes Plan: The patient is admitted with a COPD exacerbation. Blood cultures: No growth at 48 hours Sputum culture: No growth at 1 day Patient is provided supplemental oxygen as needed via nasal cannula. We will place the patient back on BiPAP at this time. ABG was obtained and reviewed to be a partially compensated metabolic alkalosis. He is provided IV Solu-Medrol every 8 hours, scheduled DuoNeb nebulizer treatments with as needed Xopenex. He is also provided Mucinex twice daily, Singulair daily, and Tessalon Perles as needed. (2) Acute hypoxemic respiratory failure Is this a current diagnosis for this admission?: Yes Plan: Worsened today. The patient was admitted for acute on chronic respiratory failure with hypoxemia secondary to his COPD exacerbation. Initial O2 saturations by EMS were 82% while on supplemental oxygen. He continues to tachypneic with accessory muscle use and requires supplemental oxygen. Plan as above. (3) HTN (hypertension) Qualifiers: Hypertension type: essential hypertension Qualified Code(s): I10 - Essential (primary) hypertension Is this a current diagnosis for this admission?: Yes Plan: Improved; will continue lisinopril. (4) Tobacco abuse Is this a current diagnosis for this admission?: Yes Plan: Smoking cessation is encouraged. Nicotine replacement therapy has been offered. (5) Acute hyponatremia Is this a current diagnosis for this admission?: Yes Plan: Resolved. The patient was admitted with mild hyponatremia secondary to intravascular volume depletion. (6) Chronic pain Is this a current diagnosis for this admission?: Yes Plan: We will schedule daily lidocaine patch may use Tylenol and oxycodone as needed. Encouraged nonpharmacological intervention such as movement, stretching and heat therapy. - Time Time Spent with patient: 25-34 minutes Medications reviewed and adjusted accordingly: Yes
[2017-05-13] MEDS: METHYLPREDNISOLONE INJ 40 MG/1 ML SDV IV SCH (22:08)
[2017-05-13] MEDS: MONTELUKAST SODIUM 10 MG TABLET PO SCH (22:08)
[2017-05-13] MEDS: LEVOFLOXACIN 750 MG/D5W RTU 750 MG/150 ML RTUPB IV SCH (22:10)
[2017-05-14] MEDS: IPRATROPIUM/ALBUTEROL 0.5-2.5 MG/3 ML AMPUL NEB SCH ×6 (00:40→20:49)
[2017-05-14] MEDS: METHYLPREDNISOLONE INJ 40 MG/1 ML SDV IV SCH ×3 (05:36→21:33)
[2017-05-14 06:33] LABS: HEMATOCRIT 32.2 % (37.9-51.0); HEMOGLOBIN 10.7 g/dL (13.5-17.0); MEAN CORPUSCULAR HGB CONC 33.2 g/dL (32.0-36.0); MEAN CORPUSCULAR VOLUME 91 fl (80-97); PLATELET COUNT 255 10^3/uL (150-450); RED BLOOD COUNT 3.56 10^6/uL (4.35-5.55); RED CELL DISTRIBUTION WIDTH 13.9 % (11.5-14.0); WHITE BLOOD COUNT 13.6 10^3/uL (4.0-10.5)
[2017-05-14 06:53] LABS: BLOOD UREA NITROGEN 18 mg/dL (7-20); CALCIUM 8.4 mg/dL (8.4-10.2); CHLORIDE 97 mmol/L (98-107); GLUCOSE 145 mg/dL (75-110); MAGNESIUM 1.9 mg/dL (1.6-2.3); POTASSIUM 3.6 mmol/L (3.6-5.0); SODIUM 142.8 mmol/L (137-145)
[2017-05-14 07:12] LABS: ANION GAP 5 (5-19)
[2017-05-14 07:14] LABS: CARBON DIOXIDE 41 mmol/L (22-30)
[2017-05-14] MEDS ORDERED: NORMAL SALINE 1000 ML 1,000 ML IV ONE (07:51)
[2017-05-14] MEDS: ENOXAPARIN SODIUM INJ 40 MG/0.4 ML DISP.SYRIN SUBCUT SCH (11:06)
[2017-05-14] MEDS: GUAIFENESIN 600 MG TABLET.SA PO SCH ×2 (11:07→21:33)
[2017-05-14] MEDS: LISINOPRIL 5 MG TABLET PO SCH (11:08)
[2017-05-14] MEDS: FAMOTIDINE 20 MG TABLET PO SCH ×2 (11:09→21:33)
[2017-05-14] MEDS: LIDOCAINE 5% (700 MG) TRANSDERMAL ADH..PATCH TP SCH (11:09)
[2017-05-14] MEDS ORDERED: OXYCODONE HCL SR 10 MG TABLET PO PRN (11:34)
[2017-05-14] MEDS ORDERED: OXYCODONE HCL IR 5 MG TABLET PO PRN (11:35)
--- NOTE | 2017-05-14 11:43 | PDOC PROGRESS REPORT ---
Subjective Progress Note for:: 05/14/17 Subjective:: The patient is seen on morning rounds for follow-up of COPD exacerbation. He is found resting in bed comfortably on 4 L via nasal cannula. He states that he did use BiPAP for approximately an hour and a half last night but had difficulty secondary to a sensation of claustrophobia. He states that he never been able to use the BiPAP successfully due to discomfort/intolerance of the mask. His primary concern today is his back and arthritic pain. He again asks that I increase his pain medications. We do discuss that I will not be able to provide him a prescription for these pain medications upon discharge. He states he understands this and really does think that the pain is increased due to his work of breathing and inability to get comfortable or rest well. Otherwise, he has no new questions or concerns today. Reason For Visit: COPD EXACERBATION, ACUTE HYPOXEMIC RESPIRATORY Physical Exam Vital Signs: Temp Pulse Resp BP Pulse Ox 98.4 F 69 22 H 131/63 H 99 05/14/17 07:57 05/14/17 07:57 05/14/17 07:57 05/14/17 07:57 05/14/17 07:57 Intake & Output 05/13/17 05/14/17 05/15/17 06:59 06:59 06:59 Intake Total 4205 2741 Balance 4205 2741 Weight 62.4 kg General appearance: PRESENT: no acute distress, well-developed, well-nourished Head exam: PRESENT: atraumatic, normocephalic Eye exam: PRESENT: conjunctiva pink, EOMI, PERRLA. ABSENT: scleral icterus Ear exam: PRESENT: normal external ear exam Mouth exam: PRESENT: moist, tongue midline Neck exam: ABSENT: carotid bruit, JVD, lymphadenopathy, thyromegaly Respiratory exam: PRESENT: prolonged expiratory phas, retraction, rhonchi, symmetrical, tachypnea, wheezes. ABSENT: accessory muscle use, rales Cardiovascular exam: PRESENT: RRR, +S1, +S2. ABSENT: diastolic murmur, rubs, systolic murmur, tachycardia Pulses: PRESENT: normal dorsalis pedis pul Vascular exam: PRESENT: normal capillary refill GI/Abdominal exam: PRESENT: normal bowel sounds, soft. ABSENT: distended, guarding, mass, organolmegaly, rebound, tenderness Rectal exam: PRESENT: deferred Extremities exam: PRESENT: full ROM. ABSENT: calf tenderness, clubbing, pedal edema Neurological exam: PRESENT: alert, awake, oriented to person, oriented to place , oriented to time, oriented to situation, CN II-XII grossly intact. ABSENT: motor sensory deficit Psychiatric exam: PRESENT: appropriate affect, normal mood. ABSENT: homicidal ideation, suicidal ideation Skin exam: PRESENT: dry, intact, warm. ABSENT: cyanosis, rash Results Laboratory Results: 05/14/17 06:15 05/14/17 06:15 05/13/17 05/14/17 05/14/17 14:25 06:15 06:15 WBC 13.6 H RBC 3.56 L Hgb 10.7 L Hct 32.2 L MCV 91 MCH 30.0 MCHC 33.2 RDW 13.9 Plt Count 255 Carbonic Acid 1.64 H HCO3/H2CO3 Ratio 22:1 ABG pH 7.46 H ABG pCO2 54.4 H ABG pO2 79.5 L ABG HCO3 37.7 H ABG O2 Saturation 96.1 ABG Base Excess 12.0 FiO2 4L Sodium 142.8 Potassium 3.6 Chloride 97 L Carbon Dioxide 41 H* Anion Gap 5 BUN 18 Creatinine 0.84 Est GFR ( Amer) > 60 Est GFR (Non-Af Amer) > 60 Glucose 145 H Calcium 8.4 Magnesium 1.9 05/11/17 05/11/17 01:06 06:48 Troponin I < 0.012 < 0.012 Impressions: Chest X-Ray 05/10/17 19:07 IMPRESSION: COPD. NO ACUTE RADIOGRAPHIC FINDING IN THE CHEST. Assessment & Plan - Diagnosis (1) COPD exacerbation Is this a current diagnosis for this admission?: Yes Plan: Improved from yesterday. The patient is admitted with a COPD exacerbation. Blood cultures: No growth at 72 hours Sputum culture: No growth ABG was obtained yesterday and reviewed to be a partially compensated metabolic alkalosis. Patient is provided supplemental oxygen as needed via nasal cannula. Continue BiPAP; patient is again refusing, he is encouraged to use BiPAP and offered antianxiety medications to help his tolerance. He is provided IV Solu-Medrol every 8 hours, scheduled DuoNeb nebulizer treatments with as needed Xopenex. He is also provided Mucinex twice daily, Singulair daily, and Tessalon Perles as needed. (2) Acute hypoxemic respiratory failure Is this a current diagnosis for this admission?: Yes Plan: Improved from yesterday. The patient was admitted for acute on chronic respiratory failure with hypoxemia secondary to his COPD exacerbation. Initial O2 saturations by EMS were 82% while on supplemental oxygen. He continues to tachypneic with retractions and requires supplemental oxygen. Plan as above. (3) HTN (hypertension) Qualifiers: Hypertension type: essential hypertension Qualified Code(s): I10 - Essential (primary) hypertension Is this a current diagnosis for this admission?: Yes Plan: Improved; will continue lisinopril. (4) Tobacco abuse Is this a current diagnosis for this admission?: Yes Plan: Smoking cessation is encouraged. Nicotine replacement therapy has been offered. (5) Acute hyponatremia Is this a current diagnosis for this admission?: Yes Plan: Resolved. The patient was admitted with mild hyponatremia secondary to intravascular volume depletion. (6) Chronic pain Is this a current diagnosis for this admission?: Yes Plan: We will schedule daily lidocaine patch may use Tylenol and oxycodone as needed. Encouraged nonpharmacological intervention such as movement, stretching and heat therapy. (7) Metabolic alkalosis Is this a current diagnosis for this admission?: Yes Plan: Metabolic alkalosis of unclear etiology. Is complicated by an acute COPD exacerbation. We will provide an IV fluid bolus and increase his maintenance fluid rate. - Time Time Spent with patient: 25-34 minutes Medications reviewed and adjusted accordingly: Yes
[2017-05-14] MEDS: OXYCODONE HCL IR 5 MG TABLET PO PRN ×3 (13:44→22:22)
[2017-05-14] MEDS: NORMAL SALINE 1000 ML 1,000 ML IV PRN (19:53)
[2017-05-14] MEDS: MONTELUKAST SODIUM 10 MG TABLET PO SCH (21:33)
[2017-05-14] MEDS: LEVOFLOXACIN 750 MG TABLET PO SCH (21:33)
[2017-05-15] MEDS: IPRATROPIUM/ALBUTEROL 0.5-2.5 MG/3 ML AMPUL NEB SCH ×6 (00:28→21:02)
[2017-05-15] MEDS: NORMAL SALINE 1000 ML 1,000 ML IV PRN ×3 (04:06→23:11)
[2017-05-15] MEDS: OXYCODONE HCL IR 5 MG TABLET PO PRN ×5 (04:08→21:26)
[2017-05-15 06:05] LABS: HEMATOCRIT 35.7 % (37.9-51.0); HEMOGLOBIN 11.6 g/dL (13.5-17.0); MEAN CORPUSCULAR HEMOGLOBIN 29.6 pg (27.0-33.4); MEAN CORPUSCULAR HGB CONC 32.4 g/dL (32.0-36.0); MEAN CORPUSCULAR VOLUME 91 fl (80-97); PLATELET COUNT 292 10^3/uL (150-450); RED BLOOD COUNT 3.92 10^6/uL (4.35-5.55); RED CELL DISTRIBUTION WIDTH 14.2 % (11.5-14.0); WHITE BLOOD COUNT 16.1 10^3/uL (4.0-10.5)
[2017-05-15] MEDS: METHYLPREDNISOLONE INJ 40 MG/1 ML SDV IV SCH ×3 (06:05→21:26)
[2017-05-15 06:29] LABS: BLOOD UREA NITROGEN 17 mg/dL (7-20); CALCIUM 8.2 mg/dL (8.4-10.2); CHLORIDE 95 mmol/L (98-107); GLUCOSE 150 mg/dL (75-110); POTASSIUM 3.6 mmol/L (3.6-5.0); SODIUM 141.9 mmol/L (137-145)
[2017-05-15 06:35] LABS: ANION GAP 9 (5-19)
[2017-05-15 06:38] LABS: CARBON DIOXIDE 38 mmol/L (22-30)
--- NOTE | 2017-05-15 10:04 | RADIOLOGY REPORT (SQ) ---
EXAM DESCRIPTION: CHEST PA/LAT COMPLETED DATE/TIME: 05/15/2017 9:56 am REASON FOR STUDY: dyspnea COMPARISON: 05/10/2017 and 03/08/2016 NUMBER OF VIEWS: Two view. TECHNIQUE: Frontal and lateral radiographic views of the chest acquired. LIMITATIONS: None. FINDINGS: LUNGS AND PLEURA: No opacities, masses or pneumothorax. No pleural effusion. Attenuated bl ood vessels and flattened santos-diaphragms. MEDIASTINUM AND HILAR STRUCTURES: No masses. No contour abnormalities. HEART AND VASCULAR STRUCTURES: Heart normal in size and contour. No evidence for failure. BONES: Old healed rib fractures. No acute findings. HARDWARE: None in the chest. OTHER: No other significant finding. IMPRESSION: COPD. NO ACUTE RADIOGRAPHIC FINDING IN THE CHEST. NO SIGNIFICANT CHANGE FROM PRIOR JAIMEE DY PER TECHNICAL DOCUMENTATION: JOB ID: [id number] [employer]- All Rights Reserved
[2017-05-15] MEDS: LISINOPRIL 5 MG TABLET PO SCH (10:13)
[2017-05-15] MEDS: ENOXAPARIN SODIUM INJ 40 MG/0.4 ML DISP.SYRIN SUBCUT SCH (10:13)
[2017-05-15] MEDS: GUAIFENESIN 600 MG TABLET.SA PO SCH ×2 (10:13→21:25)
[2017-05-15] MEDS: FAMOTIDINE 20 MG TABLET PO SCH ×2 (10:13→21:25)
[2017-05-15] MEDS: LIDOCAINE 5% (700 MG) TRANSDERMAL ADH..PATCH TP SCH (10:15)
--- NOTE | 2017-05-15 10:57 | PDOC PROGRESS REPORT ---
Subjective Progress Note for:: 05/15/17 Subjective:: The patient is seen on morning rounds. He is sitting up to the edge of the bed on nasal cannula. He remains tachypneic with accessory muscle use and retractions. However, he is fully conversational. He reports continued productive cough and dyspnea while at rest. He denies fevers or chills. He does endorse continued generalized chronic pain related to osteoarthritis. He expresses frustration that his breathing has not yet improved. Reason For Visit: COPD EXACERBATION, ACUTE HYPOXEMIC RESPIRATORY Physical Exam Vital Signs: Temp Pulse Resp BP Pulse Ox 98.1 F 87 18 145/73 H 96 05/15/17 07:03 05/15/17 07:58 05/15/17 07:58 05/15/17 07:03 05/15/17 07:58 Intake & Output 05/14/17 05/15/17 05/16/17 06:59 06:59 06:59 Intake Total 2741 6119 Balance 2741 6119 Weight 63.8 kg General appearance: PRESENT: no acute distress, thin, well-developed, well- nourished Head exam: PRESENT: atraumatic, normocephalic Eye exam: PRESENT: conjunctiva pink, EOMI, PERRLA. ABSENT: scleral icterus Ear exam: PRESENT: normal external ear exam Mouth exam: PRESENT: moist, tongue midline Neck exam: ABSENT: carotid bruit, JVD, lymphadenopathy, thyromegaly Respiratory exam: PRESENT: accessory muscle use, decreased breath sounds, prolonged expiratory phas, retraction, rhonchi, tachypnea, wheezes, other - On supplemental oxygen via nasal cannula. ABSENT: rales Cardiovascular exam: PRESENT: RRR, +S1, +S2. ABSENT: diastolic murmur, rubs, systolic murmur Pulses: PRESENT: normal dorsalis pedis pul Vascular exam: PRESENT: normal capillary refill GI/Abdominal exam: PRESENT: normal bowel sounds, soft. ABSENT: distended, guarding, mass, organolmegaly, rebound, tenderness Rectal exam: PRESENT: deferred Extremities exam: PRESENT: full ROM. ABSENT: calf tenderness, clubbing, pedal edema Neurological exam: PRESENT: alert, awake, oriented to person, oriented to place , oriented to time, oriented to situation, CN II-XII grossly intact. ABSENT: motor sensory deficit Psychiatric exam: PRESENT: appropriate affect, normal mood. ABSENT: homicidal ideation, suicidal ideation Skin exam: PRESENT: dry, intact, warm. ABSENT: cyanosis, rash Results Laboratory Results: 05/15/17 05:34 05/15/17 05:34 05/15/17 05/15/17 05:34 05:34 WBC 16.1 H RBC 3.92 L Hgb 11.6 L Hct 35.7 L MCV 91 MCH 29.6 MCHC 32.4 RDW 14.2 H Plt Count 292 Sodium 141.9 Potassium 3.6 Chloride 95 L Carbon Dioxide 38 H Anion Gap 9 BUN 17 Creatinine 0.86 Est GFR ( Amer) > 60 Est GFR (Non-Af Amer) > 60 Glucose 150 H Calcium 8.2 L 05/11/17 23:00 Sputum Gram Stain - Final 05/11/17 23:00 Sputum Sputum Culture - Final NORMAL GIOVANNA 05/11/17 05/11/17 01:06 06:48 Troponin I < 0.012 < 0.012 Impressions: Chest X-Ray 05/15/17 00:00 IMPRESSION: COPD. NO ACUTE RADIOGRAPHIC FINDING IN THE CHEST. NO SIGNIFICANT CHANGE FROM PRIOR STUDY PER Assessment & Plan - Diagnosis (1) COPD exacerbation Is this a current diagnosis for this admission?: Yes Plan: Unchanged from yesterday. The patient is admitted with a COPD exacerbation. Blood cultures: No growth at 4 days Sputum culture: No growth ABG was obtained and reviewed to be a partially compensated metabolic alkalosis. Will obtain a venous blood gas today as the patient refuses additional ABGs. Repeat chest x-ray demonstrates COPD: No evidence of developing pneumonias. Patient is provided supplemental oxygen as needed via nasal cannula. Continue BiPAP; patient is continuing to refuse despite encouragement and offer of antianxiety medications. He is provided IV Solu-Medrol every 8 hours, scheduled DuoNeb nebulizer treatments with as needed Xopenex. He is also provided Mucinex twice daily, Singulair daily, and Tessalon Perles as needed. We will consult Pulmonology today; appreciate their evaluation and recommendations. (2) Acute hypoxemic respiratory failure Is this a current diagnosis for this admission?: Yes Plan: The patient was admitted for acute on chronic respiratory failure with hypoxemia secondary to his COPD exacerbation. Initial O2 saturations by EMS were 82% while on supplemental oxygen. He continues to tachypneic with retractions and requires supplemental oxygen. Plan as above. (3) HTN (hypertension) Qualifiers: Hypertension type: essential hypertension Qualified Code(s): I10 - Essential (primary) hypertension Is this a current diagnosis for this admission?: Yes Plan: Improved; will continue lisinopril. (4) Tobacco abuse Is this a current diagnosis for this admission?: Yes Plan: Smoking cessation is encouraged. Nicotine replacement therapy has been offered. (5) Acute hyponatremia Is this a current diagnosis for this admission?: Yes Plan: Resolved. The patient was admitted with mild hyponatremia secondary to intravascular volume depletion. (6) Chronic pain Is this a current diagnosis for this admission?: Yes Plan: We will schedule daily lidocaine patch may use Tylenol and oxycodone as needed. Encouraged nonpharmacological intervention such as movement, stretching and heat therapy. (7) Metabolic alkalosis Is this a current diagnosis for this admission?: Yes Plan: Metabolic alkalosis of unclear etiology. Is complicated by an acute COPD exacerbation. Bicarb is improved today after receiving IV fluid bolus yesterday. Will continue to IV maintenance fluids. - Time Time Spent with patient: 25-34 minutes Medications reviewed and adjusted accordingly: Yes
[2017-05-15 11:23] LABS: VENOUS BLOOD BASE EXCESS 12.9 mmol/L; VENOUS BLOOD HCO3 40.9 mmol/L (20-32); VENOUS BLOOD PH 7.39 (7.30-7.42)
[2017-05-15 11:31] LABS: VENOUS BLOOD PCO2 69.4 mmHg (35-63)
[2017-05-15] MEDS: LEVOFLOXACIN 750 MG TABLET PO SCH (21:25)
[2017-05-15] MEDS: MONTELUKAST SODIUM 10 MG TABLET PO SCH (21:26)
[2017-05-16] MEDS: IPRATROPIUM/ALBUTEROL 0.5-2.5 MG/3 ML AMPUL NEB SCH ×7 (01:01→23:52)
[2017-05-16] MEDS: OXYCODONE HCL IR 5 MG TABLET PO PRN ×2 (01:18→05:59)
[2017-05-16 05:49] LABS: HEMATOCRIT 34.7 % (37.9-51.0); HEMOGLOBIN 11.4 g/dL (13.5-17.0); MEAN CORPUSCULAR HEMOGLOBIN 29.7 pg (27.0-33.4); MEAN CORPUSCULAR HGB CONC 32.7 g/dL (32.0-36.0); MEAN CORPUSCULAR VOLUME 91 fl (80-97); PLATELET COUNT 292 10^3/uL (150-450); RED BLOOD COUNT 3.82 10^6/uL (4.35-5.55); RED CELL DISTRIBUTION WIDTH 14.3 % (11.5-14.0); WHITE BLOOD COUNT 14.7 10^3/uL (4.0-10.5)
[2017-05-16] MEDS: METHYLPREDNISOLONE INJ 40 MG/1 ML SDV IV SCH ×3 (05:59→21:08)
[2017-05-16 06:27] LABS: ANION GAP 8 (5-19); BLOOD UREA NITROGEN 18 mg/dL (7-20); CALCIUM 8.4 mg/dL (8.4-10.2); CARBON DIOXIDE 39 mmol/L (22-30); CHLORIDE 93 mmol/L (98-107); GLUCOSE 192 mg/dL (75-110); POTASSIUM 4.1 mmol/L (3.6-5.0); SODIUM 139.7 mmol/L (137-145)
[2017-05-16] MEDS ORDERED: OXYCODONE HCL IR 5 MG TABLET PO PRN (09:18)
[2017-05-16] MEDS ORDERED: HALOPERIDOL LACTATE INJ 5 MG/1 ML VIAL IV ONE (10:15)
[2017-05-16] MEDS: ENOXAPARIN SODIUM INJ 40 MG/0.4 ML DISP.SYRIN SUBCUT SCH (10:20)
[2017-05-16] MEDS: KETOROLAC TROMETHAMINE INJ/PF 30 MG/1 ML SDV IV PRN ×2 (10:20→17:59)
[2017-05-16] MEDS: LISINOPRIL 5 MG TABLET PO SCH (10:22)
[2017-05-16] MEDS: GUAIFENESIN 600 MG TABLET.SA PO SCH ×2 (10:23→21:08)
[2017-05-16] MEDS: LIDOCAINE 5% (700 MG) TRANSDERMAL ADH..PATCH TP SCH (10:23)
[2017-05-16] MEDS: NORMAL SALINE 1000 ML 1,000 ML IV PRN (10:23)
[2017-05-16] MEDS: FAMOTIDINE 20 MG TABLET PO SCH ×2 (10:23→21:08)
[2017-05-16] MEDS: LEVOFLOXACIN 750 MG TABLET PO SCH (21:07)
[2017-05-16] MEDS: MONTELUKAST SODIUM 10 MG TABLET PO SCH (21:07)
[2017-05-17] MEDS: NORMAL SALINE 1000 ML 1,000 ML IV PRN ×2 (03:14→14:33)
[2017-05-17] MEDS: IPRATROPIUM/ALBUTEROL 0.5-2.5 MG/3 ML AMPUL NEB SCH ×5 (03:45→21:26)
[2017-05-17] MEDS: METHYLPREDNISOLONE INJ 40 MG/1 ML SDV IV SCH ×3 (05:18→22:34)
[2017-05-17] MEDS: KETOROLAC TROMETHAMINE INJ/PF 30 MG/1 ML SDV IV PRN ×3 (05:19→22:43)
[2017-05-17 08:20] LABS: VENOUS BLOOD BASE EXCESS 8.7 mmol/L; VENOUS BLOOD HCO3 34.6 mmol/L (20-32); VENOUS BLOOD PCO2 53.4 mmHg (35-63); VENOUS BLOOD PH 7.43 (7.30-7.42)
[2017-05-17 08:21] LABS: HEMATOCRIT 36.1 % (37.9-51.0); MEAN CORPUSCULAR HEMOGLOBIN 29.9 pg (27.0-33.4); MEAN CORPUSCULAR HGB CONC 33.1 g/dL (32.0-36.0); MEAN CORPUSCULAR VOLUME 90 fl (80-97); PLATELET COUNT 301 10^3/uL (150-450); RED BLOOD COUNT 4.01 10^6/uL (4.35-5.55); RED CELL DISTRIBUTION WIDTH 14.3 % (11.5-14.0); WHITE BLOOD COUNT 16.2 10^3/uL (4.0-10.5)
[2017-05-17 08:35] LABS: ANION GAP 5 (5-19); BLOOD UREA NITROGEN 21 mg/dL (7-20); CARBON DIOXIDE 37 mmol/L (22-30); CHLORIDE 95 mmol/L (98-107); GLUCOSE 169 mg/dL (75-110); POTASSIUM 3.8 mmol/L (3.6-5.0); SODIUM 137.4 mmol/L (137-145)
[2017-05-17] MEDS: OXYCODONE HCL IR 5 MG TABLET PO PRN ×3 (10:48→23:59)
[2017-05-17] MEDS: FAMOTIDINE 20 MG TABLET PO SCH ×2 (10:52→22:34)
[2017-05-17] MEDS: LISINOPRIL 5 MG TABLET PO SCH (10:52)
[2017-05-17] MEDS: GUAIFENESIN 600 MG TABLET.SA PO SCH ×2 (10:52→22:35)
[2017-05-17] MEDS: ENOXAPARIN SODIUM INJ 40 MG/0.4 ML DISP.SYRIN SUBCUT SCH (10:52)
[2017-05-17] MEDS: LIDOCAINE 5% (700 MG) TRANSDERMAL ADH..PATCH TP SCH (10:53)
--- NOTE | 2017-05-17 12:28 | PDOC PROGRESS REPORT ---
Subjective Progress Note for:: 05/17/17 Subjective:: The patient is seen on morning rounds. He is sitting up to the edge of the bed on nasal cannula. He remains tachypneic with accessory muscle use and retractions. However, he is fully conversational. He reports continued productive cough and dyspnea while at rest. He denies fevers or chills. He does endorse continued generalized chronic pain related to osteoarthritis and again asks me to increase his narcotic pain medications. He confirms that he is not using the BiPAP stating that he can only tolerate the mask for a few minutes at a time. He that he does understand that use of the BiPAP machine with ease his work of breathing and likely increase the speed with which he improves. He is agreeable to trying BiPAP again today if I am able to provide something for his anxiety. Reason For Visit: COPD EXACERBATION, ACUTE HYPOXEMIC RESPIRATORY Physical Exam Vital Signs: Temp Pulse Resp BP Pulse Ox 98.4 F 75 20 132/71 H 95 05/16/17 23:48 05/17/17 07:00 05/17/17 03:45 05/16/17 23:48 05/17/17 00:00 Intake & Output 05/16/17 05/17/17 05/18/17 06:59 06:59 06:59 Intake Total 5875 1800 Balance 5875 1800 Weight 64.4 kg 62.6 kg General appearance: PRESENT: no acute distress, thin, well-developed, well- nourished Head exam: PRESENT: atraumatic, normocephalic Eye exam: PRESENT: conjunctiva pink, EOMI, PERRLA. ABSENT: scleral icterus Ear exam: PRESENT: normal external ear exam Mouth exam: PRESENT: moist, tongue midline Neck exam: ABSENT: carotid bruit, JVD, lymphadenopathy, thyromegaly Respiratory exam: PRESENT: accessory muscle use, retraction, tachypnea, wheezes. ABSENT: rales, rhonchi Cardiovascular exam: PRESENT: RRR, +S1, +S2. ABSENT: diastolic murmur, rubs, systolic murmur Pulses: PRESENT: normal dorsalis pedis pul Vascular exam: PRESENT: normal capillary refill GI/Abdominal exam: PRESENT: normal bowel sounds, soft. ABSENT: distended, guarding, mass, organolmegaly, rebound, tenderness Rectal exam: PRESENT: deferred Extremities exam: PRESENT: full ROM. ABSENT: calf tenderness, clubbing, pedal edema Neurological exam: PRESENT: alert, awake, oriented to person, oriented to place , oriented to time, oriented to situation, CN II-XII grossly intact. ABSENT: motor sensory deficit Psychiatric exam: PRESENT: appropriate affect, normal mood. ABSENT: homicidal ideation, suicidal ideation Skin exam: PRESENT: dry, intact, warm. ABSENT: cyanosis, rash Results Laboratory Results: 05/17/17 08:07 05/17/17 08:07 05/17/17 05/17/17 05/17/17 08:07 08:07 08:07 WBC 16.2 H RBC 4.01 L Hgb 12.0 L Hct 36.1 L MCV 90 MCH 29.9 MCHC 33.1 RDW 14.3 H Plt Count 301 VBG pH 7.43 H VBG pCO2 53.4 VBG HCO3 34.6 H VBG Base Excess 8.7 Sodium 137.4 Potassium 3.8 Chloride 95 L Carbon Dioxide 37 H Anion Gap 5 BUN 21 H Creatinine 0.78 Est GFR ( Amer) > 60 Est GFR (Non-Af Amer) > 60 Glucose 169 H Calcium 8.0 L 05/11/17 05/11/17 01:06 06:48 Troponin I < 0.012 < 0.012 Impressions: Chest X-Ray 05/15/17 00:00 IMPRESSION: COPD. NO ACUTE RADIOGRAPHIC FINDING IN THE CHEST. NO SIGNIFICANT CHANGE FROM PRIOR STUDY PER Assessment & Plan - Diagnosis (1) COPD exacerbation Is this a current diagnosis for this admission?: Yes Plan: Unchanged from yesterday. The patient is admitted with a COPD exacerbation. Blood cultures: No growth at 4 days Sputum culture: No growth ABG was obtained and reviewed to be a partially compensated metabolic alkalosis. Repeat chest x-ray demonstrates COPD: No evidence of developing pneumonias. Patient is provided supplemental oxygen as needed via nasal cannula. Continue BiPAP; patient is continuing to refuse despite encouragement and offer of antianxiety medications. We will trial IV Haldol 5 mg 1 to see if this improves his tolerance of BiPAP. He is provided IV Solu-Medrol every 8 hours, scheduled DuoNeb nebulizer treatments with as needed Xopenex. He is also provided Mucinex twice daily, Singulair daily, and Tessalon Perles as needed. Pulmonology has been consulted; appreciate their evaluation and recommendations. (2) Acute hypoxemic respiratory failure Is this a current diagnosis for this admission?: Yes Plan: The patient was admitted for acute on chronic respiratory failure with hypoxemia secondary to his COPD exacerbation. Initial O2 saturations by EMS were 82% while on supplemental oxygen. He continues to tachypneic with retractions and requires supplemental oxygen. Plan as above. (3) HTN (hypertension) Qualifiers: Hypertension type: essential hypertension Qualified Code(s): I10 - Essential (primary) hypertension Is this a current diagnosis for this admission?: Yes Plan: Improved; will continue lisinopril. (4) Tobacco abuse Is this a current diagnosis for this admission?: Yes Plan: Smoking cessation is encouraged. Nicotine replacement therapy has been offered. (5) Acute hyponatremia Is this a current diagnosis for this admission?: Yes Plan: Resolved. The patient was admitted with mild hyponatremia secondary to intravascular volume depletion. (6) Chronic pain Is this a current diagnosis for this admission?: Yes Plan: We will schedule daily lidocaine patch may use Tylenol and oxycodone as needed. Encouraged nonpharmacological intervention such as movement, stretching and heat therapy. (7) Metabolic alkalosis Is this a current diagnosis for this admission?: Yes Plan: Metabolic alkalosis of unclear etiology. Is complicated by an acute COPD exacerbation. Bicarb slightly worsened today; the patient has consistently refused BiPAP. Will continue to IV maintenance fluids. - Time Time Spent with patient: 25-34 minutes Smoking Cessation Education: 3 to 10 minutes Medications reviewed and adjusted accordingly: Yes
--- NOTE | 2017-05-17 12:38 | PDOC PROGRESS REPORT ---
Subjective Progress Note for:: 05/17/17 Subjective:: The patient is seen on morning rounds. He is found ambulating in his room while on supplemental oxygen via nasal cannula. He continues to be tachypneic with accessory muscle use and retractions. He is fully conversational while standing. He states that his breathing is slightly improved today. He continues to have a productive cough. His primary complaint is, again, his chronic pain. We discussed that I am concerned that his oxycodone has not been effective and may be worsening his respiratory status and would like to reduce his dose today. He states that he attempted to use the BiPAP yesterday after receiving the Haldol. He states that the Haldol made his anxiety worse and that he only tolerated the BiPAP for approximately 10 minutes. He is agreeable to trying again today if I can provide a stronger medication for his anxiety. Reason For Visit: COPD EXACERBATION, ACUTE HYPOXEMIC RESPIRATORY Physical Exam Vital Signs: Temp Pulse Resp BP Pulse Ox 98.4 F 75 20 132/71 H 95 05/16/17 23:48 05/17/17 07:00 05/17/17 03:45 05/16/17 23:48 05/17/17 00:00 Intake & Output 05/16/17 05/17/17 05/18/17 06:59 06:59 06:59 Intake Total 5875 1800 Balance 5875 1800 Weight 64.4 kg 62.6 kg General appearance: PRESENT: no acute distress, thin, well-developed, well- nourished Head exam: PRESENT: atraumatic, normocephalic Eye exam: PRESENT: conjunctiva pink, EOMI, PERRLA. ABSENT: scleral icterus Ear exam: PRESENT: normal external ear exam Mouth exam: PRESENT: moist, tongue midline Neck exam: ABSENT: carotid bruit, JVD, lymphadenopathy, thyromegaly Respiratory exam: PRESENT: accessory muscle use, decreased breath sounds, prolonged expiratory phas, retraction, tachypnea, wheezes. ABSENT: rales, rhonchi Cardiovascular exam: PRESENT: RRR, +S1, +S2. ABSENT: diastolic murmur, rubs, systolic murmur Pulses: PRESENT: normal dorsalis pedis pul Vascular exam: PRESENT: normal capillary refill GI/Abdominal exam: PRESENT: normal bowel sounds, soft. ABSENT: distended, guarding, mass, organolmegaly, rebound, tenderness Rectal exam: PRESENT: deferred Extremities exam: PRESENT: full ROM. ABSENT: calf tenderness, clubbing, pedal edema Neurological exam: PRESENT: alert, awake, oriented to person, oriented to place , oriented to time, oriented to situation, CN II-XII grossly intact. ABSENT: motor sensory deficit Psychiatric exam: PRESENT: appropriate affect, normal mood. ABSENT: homicidal ideation, suicidal ideation Skin exam: PRESENT: dry, intact, warm. ABSENT: cyanosis, rash Results Laboratory Results: 05/17/17 08:07 05/17/17 08:07 05/17/17 05/17/17 05/17/17 08:07 08:07 08:07 WBC 16.2 H RBC 4.01 L Hgb 12.0 L Hct 36.1 L MCV 90 MCH 29.9 MCHC 33.1 RDW 14.3 H Plt Count 301 VBG pH 7.43 H VBG pCO2 53.4 VBG HCO3 34.6 H VBG Base Excess 8.7 Sodium 137.4 Potassium 3.8 Chloride 95 L Carbon Dioxide 37 H Anion Gap 5 BUN 21 H Creatinine 0.78 Est GFR ( Amer) > 60 Est GFR (Non-Af Amer) > 60 Glucose 169 H Calcium 8.0 L 05/11/17 05/11/17 01:06 06:48 Troponin I < 0.012 < 0.012 Impressions: Chest X-Ray 05/15/17 00:00 IMPRESSION: COPD. NO ACUTE RADIOGRAPHIC FINDING IN THE CHEST. NO SIGNIFICANT CHANGE FROM PRIOR STUDY PER Assessment & Plan - Diagnosis (1) COPD exacerbation Is this a current diagnosis for this admission?: Yes Plan: Unchanged. The patient is admitted with a COPD exacerbation. Blood cultures: No growth at 5 days Sputum culture: Normal gail ABG was obtained and reviewed to be a partially compensated metabolic alkalosis ; he refuses further ABGs. A Venous blood gas obtained yesterday showed compensated metabolic alkalosis. Repeat VBG today shows a slightly worsened metabolic alkalosis. Repeat chest x-ray demonstrates COPD: No evidence of developing pneumonias. Patient is provided supplemental oxygen as needed via nasal cannula. Continue BiPAP; he did not do well with Haldol yesterday. I am concerned that there may be some attempts at manipulation for benzos/opiates in exchange for more compliant use. I did discuss with the patient at length how the BiPAP will reduce his work of breathing, air hunger, and increase the rate at which he improves. Will decrease oxycodone and trial ativan today. He is provided IV Solu-Medrol every 8 hours, scheduled DuoNeb nebulizer treatments with as needed Xopenex. He is also provided Mucinex twice daily, Singulair daily, and Tessalon Perles as needed. Pulmonology has been consulted; appreciate their evaluation and recommendations. (2) Acute hypoxemic respiratory failure Is this a current diagnosis for this admission?: Yes Plan: The patient was admitted for acute on chronic respiratory failure with hypoxemia secondary to his COPD exacerbation. Initial O2 saturations by EMS were 82% while on supplemental oxygen. He continues to tachypneic with retractions and requires supplemental oxygen. Plan as above. (3) HTN (hypertension) Qualifiers: Hypertension type: essential hypertension Qualified Code(s): I10 - Essential (primary) hypertension Is this a current diagnosis for this admission?: Yes Plan: Improved; will continue lisinopril. (4) Tobacco abuse Is this a current diagnosis for this admission?: Yes Plan: Smoking cessation is encouraged. Nicotine replacement therapy has been offered. (5) Acute hyponatremia Is this a current diagnosis for this admission?: Yes Plan: Resolved. The patient was admitted with mild hyponatremia secondary to intravascular volume depletion. (6) Chronic pain Is this a current diagnosis for this admission?: Yes Plan: We will schedule daily lidocaine patch may use Tylenol and oxycodone as needed. Encouraged nonpharmacological intervention such as movement, stretching and heat therapy. (7) Metabolic alkalosis Is this a current diagnosis for this admission?: Yes Plan: Metabolic alkalosis of unclear etiology. Is complicated by an acute COPD exacerbation. Bicarb slightly improved today; the patient has consistently refused BiPAP. Will continue to IV maintenance fluids. - Time Time Spent with patient: 25-34 minutes Medications reviewed and adjusted accordingly: Yes - Plan Summary Plan Summary: The patient was admitted with a COPD exacerbation. He has been noncompliant with BiPAP use. His primary concern is his chronic pain which he states has been preventing him from being able to tolerate the BiPAP. This was not improved despite oxycodone, therefore, have decreased oxycodone and will trial IV Ativan 1 today to see if this improves his BiPAP tolerance. Blood gases show a metabolic alkalosis, slightly improved after starting IV fluids. The patient is a full code and does wish to be intubated if his respiratory status necessitates.
[2017-05-17] MEDS ORDERED: LISINOPRIL 5 MG TABLET PO ONE (13:30)
[2017-05-17] MEDS ORDERED: NICOTINE 7 MG/24 HR PATCH.TD24 TD PRN (13:30)
[2017-05-17] MEDS: LORAZEPAM INJ 2 MG/1 ML VIAL IV PRN (14:33)
[2017-05-17] MEDS: MONTELUKAST SODIUM 10 MG TABLET PO SCH (22:35)
[2017-05-18] MEDS: NORMAL SALINE 1000 ML 1,000 ML IV PRN
[2017-05-18] MEDS: PHARMACY COMMUNICATION ORDER MC SCH ×2 (00:01→21:34)
[2017-05-18] MEDS: IPRATROPIUM/ALBUTEROL 0.5-2.5 MG/3 ML AMPUL NEB SCH ×6 (00:24→20:28)
[2017-05-18] MEDS: METHYLPREDNISOLONE INJ 40 MG/1 ML SDV IV SCH ×3 (06:00→21:19)
[2017-05-18 06:04] LABS: HEMATOCRIT 34.5 % (37.9-51.0); HEMOGLOBIN 11.2 g/dL (13.5-17.0); MEAN CORPUSCULAR HEMOGLOBIN 29.6 pg (27.0-33.4); MEAN CORPUSCULAR HGB CONC 32.5 g/dL (32.0-36.0); MEAN CORPUSCULAR VOLUME 91 fl (80-97); PLATELET COUNT 289 10^3/uL (150-450); RED BLOOD COUNT 3.79 10^6/uL (4.35-5.55); RED CELL DISTRIBUTION WIDTH 14.6 % (11.5-14.0); WHITE BLOOD COUNT 17.5 10^3/uL (4.0-10.5)
[2017-05-18] MEDS: LORAZEPAM INJ 2 MG/1 ML VIAL IV PRN ×3 (06:17→20:22)
[2017-05-18 06:21] LABS: ANION GAP 5 (5-19); BLOOD UREA NITROGEN 22 mg/dL (7-20); CALCIUM 7.6 mg/dL (8.4-10.2); CARBON DIOXIDE 33 mmol/L (22-30); CHLORIDE 100 mmol/L (98-107); GLUCOSE 163 mg/dL (75-110); SODIUM 138.4 mmol/L (137-145)
[2017-05-18] MEDS: OXYCODONE HCL IR 5 MG TABLET PO PRN ×3 (07:36→20:22)
[2017-05-18] MEDS: GUAIFENESIN 600 MG TABLET.SA PO SCH ×2 (11:36→21:19)
[2017-05-18] MEDS: ENOXAPARIN SODIUM INJ 40 MG/0.4 ML DISP.SYRIN SUBCUT SCH (11:36)
[2017-05-18] MEDS: FAMOTIDINE 20 MG TABLET PO SCH ×2 (11:36→21:19)
[2017-05-18] MEDS: LISINOPRIL 10 MG TABLET PO SCH (11:36)
[2017-05-18] MEDS: KETOROLAC TROMETHAMINE INJ/PF 30 MG/1 ML SDV IV PRN ×2 (11:54→19:39)
[2017-05-18] MEDS: LIDOCAINE 5% (700 MG) TRANSDERMAL ADH..PATCH TP SCH (11:56)
[2017-05-18] MEDS: LEVALBUTEROL HCL NEB 1.25 MG/3 ML AMPUL NEB PRN ×2 (14:12→22:49)
--- NOTE | 2017-05-18 19:09 | PDOC PROGRESS REPORT ---
Subjective Progress Note for:: 05/18/17 Subjective:: Pt states that he can use BIPAP if he gets his pain medication and ativan together to help with anxiety. Reason For Visit: COPD EXACERBATION, ACUTE HYPOXEMIC RESPIRATORY Physical Exam Vital Signs: Temp Pulse Resp BP Pulse Ox 98.7 F 114 H 20 139/100 H 97 05/18/17 15:25 05/18/17 16:00 05/18/17 16:00 05/18/17 15:25 05/18/17 16:00 Intake & Output 05/17/17 05/18/17 05/19/17 06:59 06:59 06:59 Intake Total 1800 3543 1166 Balance 1800 3543 1166 Weight 62.6 kg 63.4 kg General appearance: PRESENT: no acute distress, well-developed, well-nourished Head exam: PRESENT: atraumatic, normocephalic Eye exam: PRESENT: conjunctiva pink, EOMI. ABSENT: scleral icterus Ear exam: PRESENT: normal external ear exam Mouth exam: PRESENT: moist, tongue midline Neck exam: ABSENT: carotid bruit, JVD, lymphadenopathy, thyromegaly Respiratory exam: PRESENT: accessory muscle use, wheezes - +scant Wheezing, + coarse breath sounds. ABSENT: rales, rhonchi Cardiovascular exam: PRESENT: RRR. ABSENT: diastolic murmur, rubs, systolic murmur Pulses: PRESENT: normal dorsalis pedis pul Vascular exam: PRESENT: normal capillary refill GI/Abdominal exam: PRESENT: normal bowel sounds, soft. ABSENT: distended, guarding, mass, organolmegaly, rebound, tenderness Rectal exam: PRESENT: deferred Extremities exam: PRESENT: full ROM. ABSENT: calf tenderness, clubbing, pedal edema Neurological exam: PRESENT: alert, awake, oriented to person, oriented to place , oriented to time, oriented to situation, CN II-XII grossly intact. ABSENT: motor sensory deficit Psychiatric exam: PRESENT: appropriate affect, normal mood. ABSENT: homicidal ideation, suicidal ideation Skin exam: PRESENT: dry, intact, warm. ABSENT: cyanosis, rash Results Laboratory Results: 05/18/17 05:28 05/18/17 05:28 05/18/17 05/18/17 05:28 05:28 WBC 17.5 H RBC 3.79 L Hgb 11.2 L Hct 34.5 L MCV 91 MCH 29.6 MCHC 32.5 RDW 14.6 H Plt Count 289 Sodium 138.4 Potassium 4.0 Chloride 100 Carbon Dioxide 33 H Anion Gap 5 BUN 22 H Creatinine 0.85 Est GFR ( Amer) > 60 Est GFR (Non-Af Amer) > 60 Glucose 163 H Calcium 7.6 L 05/11/17 05/11/17 01:06 06:48 Troponin I < 0.012 < 0.012 Impressions: Chest X-Ray 05/15/17 00:00 IMPRESSION: COPD. NO ACUTE RADIOGRAPHIC FINDING IN THE CHEST. NO SIGNIFICANT CHANGE FROM PRIOR STUDY PER Assessment & Plan - Diagnosis (1) Acute hyponatremia Is this a current diagnosis for this admission?: Yes Plan: Resolved. (2) Acute hypoxemic respiratory failure Is this a current diagnosis for this admission?: Yes Plan: Resolving. Will continue current treatment. (3) COPD exacerbation Is this a current diagnosis for this admission?: Yes Plan: Will continue current medications. (4) Chronic pain Is this a current diagnosis for this admission?: Yes Plan: Will continue current treatment. (5) HTN (hypertension) Qualifiers: Hypertension type: essential hypertension Qualified Code(s): I10 - Essential (primary) hypertension Is this a current diagnosis for this admission?: Yes Plan: Will continue current treatment. (6) Metabolic alkalosis Is this a current diagnosis for this admission?: Yes Plan: Secondary to Respiratory: Supportive care. (7) Tobacco abuse Is this a current diagnosis for this admission?: Yes Plan: Encourage stop smoking. (8) Polysubstance abuse Is this a current diagnosis for this admission?: Yes Plan: Cocaine and Marijuana use: Supportive care. - Time Time Spent with patient: Less than 15 minutes Anticipated discharge: Home
[2017-05-18] MEDS: MONTELUKAST SODIUM 10 MG TABLET PO SCH (21:18)
[2017-05-18] MEDS ORDERED: LEVOFLOXACIN 750 MG TABLET PO SCH (22:00)
[2017-05-19] MEDS: IPRATROPIUM/ALBUTEROL 0.5-2.5 MG/3 ML AMPUL NEB SCH ×3 (00:46→08:44)
[2017-05-19] MEDS: KETOROLAC TROMETHAMINE INJ/PF 30 MG/1 ML SDV IV PRN ×2 (01:14→07:13)
[2017-05-19] MEDS: OXYCODONE HCL IR 5 MG TABLET PO PRN ×2 (03:27→09:18)
[2017-05-19] MEDS: LORAZEPAM INJ 2 MG/1 ML VIAL IV PRN (03:27)
[2017-05-19] MEDS: METHYLPREDNISOLONE INJ 40 MG/1 ML SDV IV SCH (06:11)
[2017-05-19 06:31] LABS: HEMATOCRIT 33.7 % (37.9-51.0); HEMOGLOBIN 11.2 g/dL (13.5-17.0); MEAN CORPUSCULAR HGB CONC 33.3 g/dL (32.0-36.0); MEAN CORPUSCULAR VOLUME 90 fl (80-97); PLATELET COUNT 293 10^3/uL (150-450); RED BLOOD COUNT 3.74 10^6/uL (4.35-5.55); RED CELL DISTRIBUTION WIDTH 14.6 % (11.5-14.0)
[2017-05-19 06:36] LABS: ANION GAP 9 (5-19); BLOOD UREA NITROGEN 21 mg/dL (7-20); CALCIUM 8.4 mg/dL (8.4-10.2); CARBON DIOXIDE 30 mmol/L (22-30); CHLORIDE 99 mmol/L (98-107); GLUCOSE 189 mg/dL (75-110); MAGNESIUM 1.6 mg/dL (1.6-2.3); POTASSIUM 3.2 mmol/L (3.6-5.0); SODIUM 138.4 mmol/L (137-145)
[2017-05-19 07:06] LABS: ABSOLUTE LYMPHOCYTES# (MANUAL) 0.5 10^3/uL (0.5-4.7); ABSOLUTE MONOCYTES # (MANUAL) 1.4 10^3/uL (0.1-1.4); ABSOLUTE NEUTROPHILS# (MANUAL) 21.2 10^3/uL (1.7-8.2); BAND NEUTROPHILS % (MANUAL) 3 % (3-5); BASOPHILS % (MANUAL) 0 % (0-2); EOSINOPHILS % (MANUAL) 0 % (0-6); LYMPHOCYTES % (MANUAL) 2 % (13-45); METAMYELOCYTES % (MANUAL) 5 % (0); MONOCYTES % (MANUAL) 6 % (3-13); MYELOCYTES % (MANUAL) 3 % (0); SEGMENTED NEUTROPHILS % (MAN) 81 % (42-78); TOTAL CELLS COUNTED 100
[2017-05-19 07:07] LABS: HYPOCHROMASIA SLIGHT; PLATELET COMMENT ADEQUATE; POLYCHROMASIA SLIGHT; TOXIC GRANULATION 1+; TOXIC VACUOLATION PRESENT
[2017-05-19] MEDS: LISINOPRIL 10 MG TABLET PO SCH (09:17)
[2017-05-19] MEDS: FAMOTIDINE 20 MG TABLET PO SCH (09:17)
[2017-05-19] MEDS: ENOXAPARIN SODIUM INJ 40 MG/0.4 ML DISP.SYRIN SUBCUT SCH (09:17)
[2017-05-19] MEDS: GUAIFENESIN 600 MG TABLET.SA PO SCH (09:17)
[2017-05-19] MEDS: LIDOCAINE 5% (700 MG) TRANSDERMAL ADH..PATCH TP SCH (09:22)
--- NOTE | 2017-05-19 12:28 | DISCHARGE SUMMARY E ---
Discharge Summary NAME: MAXIMILIAN PATEL : 1965 AGE: 52Y ADMITTED: 05/10/2017 DISCHARGED: 05/19/2017 CODE STATUS: FULL CODE. CONSULTING MANAGER PATIENT: Dr. Woodard DISCHARGE DIAGNOSES: 1. Chronic obstructive pulmonary disease exacerbation. 2. [place]-obespep hypoxemic respiratory failure. 3. Acute hyponatremia which is resolved. 4. Hypertension. 5. Tobacco dependency continuous. 6. Polysubstance including marijuana and cocaine. DISCHARGE MEDICATIONS: 1. Prednisone 60 mg taper. 2. Spiriva 1 capsule inhalation daily. 3. Singulair 10 mg p.o. at hour of sleep. 4. Lisinopril 10 mg p.o. daily. 5. DuoNeb 1 neb q.6 hours p.r.n. 6. Advair 500/50 one puff inhalation q.12 hours. 7. ProAir HFA 2 puffs inhalation q.4 hours p.r.n. DIET: As tolerated. ACTIVITY: As tolerated. The patient is on O2 at 2.5 L continuously. DIAGNOSTICS: Hematology obtained on 05/19/2017: WBCs are 17.5, hemoglobin is 11.2, hematocrit is 33.7, platelet count is 293,000. Blood gas obtained on 05/17/2017: Venous pH is 7.43, pCO2 is 53, bicarb is 34. Chemistry obtained on 05/29/2017: Sodium is 138, potassium 3.2, chloride is 99, carbon dioxide 30, BUN 21, creatinine is 1.01, glucose 189, calcium is 84, magnesium is 1.6. Bilirubin is 1, AST 32, ALT 50, alk phos 103, CK 170, CK-MB is 4.82. Troponin is 0.012. Total protein is 6.4. Albumin 3.8. Toxicology is positive for cocaine and marijuana. MICROBIOLOGY: Blood cultures obtained on 05/11/2017 revealed no growth. Sputum culture obtained on 05/11/2017 reveals no growth. Chest x-ray obtained on 05/10/2017 revealed COPD. Chest x-ray obtained on 05/15/2017 revealed COPD with no acute radiographic findings of the chest. EKG obtained on 05/10/2017 reveals sinus tachycardia. HISTORY OF PRESENT ILLNESS: The patient is a 52-year-old male with a past medical history of oxygen dependent COPD. The patient presents to the emergency department with a chief complaint of shortness of breath. The patient stated that for the last several weeks he had been coughing up greenish sputum and reports that he had increasing wheezing over the past 24 hours. The patient admits to subjective fevers and chills as well as nausea. The patient reports a crampy right-sided chest pain particularly with cough. The patient received IV Solu-Medrol, 2 g of magnesium, and 3 DuoNebs from the EMS and was requiring 40% FiO2 on BiPAP in the emergency department. The patient received an additional 3 albuterol treatments and was requiring ongoing BiPAP support, and was referred to the hospitalist for admission and management. HOSPITAL COURSE: Patient was admitted to [facility]. The patient was started on IV steroids as well as Levaquin. The patient completed a 10-day course of Levaquin as well as steroids. The patient has been titrated during the stay. The patient's white count has risen; however, this is thought to be attributed to steroids given the patient's symptoms continued to improved and the patient has no area of infiltrate. The patient has been coughing up a scant amount of sputum. The patient was seen by Dr. Woodard during his stay, and the patient was agreeable to wearing the BiPAP. The patient is now lying in the bed without oxygen on, even his home O2 setting, and is able to fully complete sentences without any distress. The patient does have some faint wheezing. Overall the patient feels his symptoms are completely resolved and is eager for discharge. I did spend 3 minutes discussing smoking cessation education, and the patient declines any pharmacological intervention at this time and was agreeable to a p.r.n. nicotine patch during his stay; however, the patient is not receptive at this time for smoking cessation. The patient was also counseled regarding polysubstance including marijuana and cocaine and the dangers associated with this; however, the patient is not receptive to treatment at this time. PHYSICAL EXAMINATION: GENERAL: On examination, the patient is a frail appearing 52-year-old male who is awake, alert, and oriented to person, place, time, and situation. He is verbal, conversational, and does not appear to be in any acute distress. VITAL SIGNS: Temperature 97.5, pulse 101, respirations 18, blood pressure 142/75, oxygen saturation is 95% on 2 L nasal cannula. SKIN: Warm and dry. No rash. He is not diaphoretic. HEENT: Pupils equal, round, reactive to light and accommodation. Conjunctivae are pink. No JVP. CARDIOVASCULAR: Heart is regular. There is no murmur or rub. CHEST: The patient does have some expiratory wheezes noted in upper lung bedoya with coarse lung sounds. ABDOMEN: Soft, nontender, nondistended. BACK: No CVA tenderness or sacral edema. EXTREMITIES: No clubbing, cyanosis, edema. PSYCHIATRIC: Appropriate affect. Pleasant mood. DISCHARGE PLANNING: The patient is advised to followup with his visual and stock associate, Dr. Woodard, within 2 weeks for hospital followup. Time spent on this discharge including assessment, plan, physical examination, patient education, review of records is 25 minutes. DICTATING PHYSICIAN: JIMBO CONCEPCION NP [id number] PHY#: [id number] ID: [id number] JOB#: [id number] ACCT: [id number] cc:ROSALES BACK M.D., MICHAEL NP > MTDD
[2017-05-19] MEDS ORDERED: POTASSIUM CHLORIDE 10 MEQ TABLET.SA PO ONE (12:30)
[2017-05-19 12:36] VITALS: BP 143/76
== END 2017-05-19 12:43 | disposition home or self-care (01) | DRG 190 ==
LOC: ER 18:51 → EH 20:29 → 3S 05-11 00:39
PROVIDERS: ADMIT Family Medicine; ATTEND Family Medicine
PROC: 5A09357 Assistance with Respiratory Ventilation, Less than 24 Consecutive Hours, Continuous Positive Airway Pressure (ICD-10-PCS; principal; 2017-05-10)
DX: J44.1 Chronic obstructive pulmonary disease with (acute) exacerbation (principal); J96.21 Acute and chronic respiratory failure with hypoxia; E87.1 Hypo-osmolality and hyponatremia; E87.3 Alkalosis; M19.90 Unspecified osteoarthritis, unspecified site; I10 Essential (primary) hypertension; F32.9 Major depressive disorder, single episode, unspecified; F17.210 Nicotine dependence, cigarettes, uncomplicated; G89.29 Other chronic pain; Z91.19 Patient's noncompliance with other medical treatment and regimen; F12.90 Cannabis use, unspecified, uncomplicated; F14.90 Cocaine use, unspecified, uncomplicated; Z99.81 Dependence on supplemental oxygen
CPT/HCPCS: 36415; 36600; 71045; 71046; 80048; 80053; 80307; 82550; 82553; 82803; 83735; 84484; 85025; 85027; 87040; 87070; 87205; 93005; 93010; 94640; 94660; 94799; 99291; J0696; J1630; J1650; J1885; J1956; J2060; J2920; J2930; J3490; J7030; J7620

== ENCOUNTER → 2017-08-26 | Outpatient (CLI) | payer MEDICAID ==
[2017-08-26 16:10] LABS: ABSOLUTE EOSINOPHILS # (AUTO) 0.2 10^3/uL (0.0-0.6); ABSOLUTE LYMPHOCYTES (AUTO) 1.8 10^3/uL (0.5-4.7); ABSOLUTE MONOCYTES (AUTO) 0.8 10^3/uL (0.1-1.4); ABSOLUTE NEUT (AUTO) 3.9 10^3/uL (1.7-8.2); BASOPHILS % (AUTO) 0.6 % (0-2); EOSINOPHILS % (AUTO) 3.6 % (0-6); HEMATOCRIT 33.6 % (37.9-51.0); HEMOGLOBIN 11.3 g/dL (13.5-17.0); LYMPHOCYTES % (AUTO) 26.5 % (13-45); MEAN CORPUSCULAR HEMOGLOBIN 29.7 pg (27.0-33.4); MEAN CORPUSCULAR HGB CONC 33.7 g/dL (32.0-36.0); MEAN CORPUSCULAR VOLUME 88 fl (80-97); MONOCYTES % (AUTO) 12.4 % (3-13); PLATELET COUNT 272 10^3/uL (150-450); RED BLOOD COUNT 3.81 10^6/uL (4.35-5.55); RED CELL DISTRIBUTION WIDTH 14.1 % (11.5-14.0); SEGMENTED NEUTROPHILS % (AUTO) 56.9 % (42-78); TOTAL CELLS COUNTED % (AUTO) 100 %; WHITE BLOOD COUNT 6.8 10^3/uL (4.0-10.5)
[2017-08-28 13:37] LABS: ANTICHROMATIN AB <0.2 AI (0.0-0.9); CENTROMERE B AB <0.2 AI (0.0-0.9); JO-1 ANTIBODY (ANACOMP) <0.2 AI (0.0-0.9); RNP AB 0.4 AI (0.0-0.9); SCLERODERMA-70 ANTIBODIES <0.2 AI (0.0-0.9); SJOGREN'S ANTI-SS-B AB <0.2 AI (0.0-0.9); SJOGREN'S SS-A ANTIBODY <0.2 AI (0.0-0.9); SMITH AB ANA <0.2 AI (0.0-0.9)
[2017-08-28 13:39] LABS: DNA DOUBLE STRAND ANTIBODY ANA <1 IU/mL (0-9)
[2017-08-31 17:37] LABS: CYTOPLASMIC (C-ANCA) <1:20 titer (Neg:<1:20)
[2017-09-01 07:43] LABS: M001-IGE PENICILLIUM CHRYSOGEN <0.10 kU/L (Class 0); M002-IGE CLADOSPORIUM HERBARUM <0.10 kU/L (Class 0); M003-IGE ASPERGILLUS FUMIGATUS <0.10 kU/L (Class 0); M004-IGE MUCOR RACEMOSUS <0.10 kU/L (Class 0); M005-IGE CANDIDA ALBICANS <0.10 kU/L (Class 0); M006-IGE ALTERNARIA ALTERNATA <0.10 kU/L (Class 0); M009-IGE FUSARIUM PROLIFERATUM <0.10 kU/L (Class 0); M012-IGE AUREOBASIDI PULLULANS <0.10 kU/L (Class 0); M013-IGE PHOMA BETAE <0.10 kU/L (Class 0); M014-IGE EPICOCCUM PURPURASCEN <0.10 kU/L (Class 0)
[2017-09-01 07:58] LABS: ATYPICAL PANCA <1:20 titer (Neg:<1:20); PERINUCLEAR (P-ANCA) <1:20 titer (Neg:<1:20)
[2017-09-01 07:59] LABS: M010-IGE STEMPHYLIUM HERBARUM <0.10 kU/L (Class 0)
== END ==
LOC: OD 15:13
PROVIDERS: ATTEND Physician Assistant
DX: J44.9 Chronic obstructive pulmonary disease, unspecified (principal)
CPT/HCPCS: 36415; 82785; 85025; 86003; 86021; 86225; 86235; 86430